=== PATIENT | female | born 1985 | race Caucasian/White ===

== ENCOUNTER 2016-10-17 10:03 | Emergency (ER) | payer BC ==
[2016-10-17 10:46] LABS: Hemoglobin 12.8 gm/dL (12.5-16.0); Mean Cell Volume 99.7 fl (78-100); Mean Corpuscular Hemoglobin 34.5 pg (27-31); Mean Corpuscular Hgb Conc 34.6 g/dl (32-36); Mean Platelet Volume 9.4 fl (6.0-9.5); Neutrophil # 4.6 K/mm3 (1.3-6.0); Neutrophil % 70.3 % (42-75.0); Platelet Count 222 K/mm3 (150-450); Red Blood Count 3.71 M/mm3 (4.2-5.4); Red Cell Distribution Width 11.6 % (11.5-14.0); White Blood Count 6.6 K/mm3 (4.0-10.5)
[2016-10-17 10:48] LABS: Urine Bilirubin Negative (NEGATIVE); Urine Blood Negative /ul (NEGATIVE); Urine Ketone Negative (NEGATIVE); Urine Nitrite Negative (NEGATIVE); Urine Protein 15 mg/dL (NEGATIVE); Urine Urobilinogen Normal (NORMAL)
[2016-10-17] MEDS ORDERED: IBUPROFEN 600 MG TABLET PO ONE (10:51)
[2016-10-17] MEDS ORDERED: IBUPROFEN 600 MG TABLET ONE (10:56)
--- NOTE | 2016-10-17 10:58 | ERNOTE ---
Abdominal HPI - General Chief Complaint: Abdominal Pain Time Seen by Provider: 10/17/16 10:44 Source: patient Exam Limitations: no limitations - Immun/Allergies/Home Medications Immunizatons: IMMUNIZATION HX Immunizations Up to Date Yes History of Influenza Vaccine Yes Hx Pneumococcal Vaccination No Allergies/Adverse Reactions: Allergies No Known Allergies Allergy (Verified 10/17/16 10:30) Home Medications: HOME MEDICATIONS NK [No Home Medication] 10/17/16 [Last Taken Unknown] - History of Present Illness Narrative: Patient has had right flank pain for about 24 hours. the pain is worse with certain movements and being upright vs laying down. She has not been taking any pain meds, denies any urinary symptoms. She had a formed BM yesterday Date (Duration): 10/16/16 Timing: constant Quality: moderate, sharpness Modifying Factors - (Improves): Present: rest Modifying Factors - (Worsens): Present: sitting up, movement Associated Symptoms: Absent: headache, chest pain, diarrhea-gross blood, fever/ chills, nausea, loss of appetite Review of Systems - Review of Systems Constitutional: Present: recent illness - flue like symptoms a week ago, resolved after two days EYE: Absent: tearing ENT: Absent: nose congestion, sore throat Respiratory: Absent: shortness of breath, cough Cardiology: Absent: chest pain, palpitations Gastrointestinal/Abdominal: Present: See HPI, abdominal pain. Absent: nausea, vomiting, diarrhea Genitourinary: Present: no symptoms reported, other - no vaginal sympotms. Absent: frequency, dysuria Skin: Absent: rash Neurological: Absent: headache - Patient's Past Medical History Patient History - Medical: Anxiety, UTI'S, Other Patient History - Cardiac/Respiratory: No pertinent hx Patient History - Cancer: No Hx of Cancer Patient History - Surgical Procedures: T & A Patient History - Other: None - Social History Living Situations: home Smoking Status: Never smoker Alcohol Use: occasionally Drug Use: none - Immunizations Immunizations Up to Date: Yes Physical Exam - Physical Exam General Appearance: Present: wd/wn, alert, no apparent distress Respiratory: Present: no respiratory distress, normal breath sounds, no accessory muscle use, chest nontender, lungs clear Cardiovascular/Chest: Present: regular rate, rhythm, no murmur Gastrointestinal/Abdominal: Present: normal bowel sounds, nondistended, soft, tenderness - mild diffuse Back Exam: Present: normal inspection, no vertebral tenderness, muscle spasm, other - tenderness on palpation of right flank muscles and muscles right below lateral ribs Neurological Exam: Present: alert, oriented, normal mood/affect, no motor/ sensory deficits DTR: N=norm/NB=norm/brisk/A=abs/DD=dull/dimin/HC=hyperactive: Ankle (L): Dull/ Diminished Skin Exam: Present: normal color, warm/dry ED Progress - Results and Orders Patient's Lab Results:: I have reviewed the patient's lab results. - Vital Signs Patient's Vital Signs:: I have reviewed the patient's vital signs. Vital Signs: Vital Signs 10/17/16 10:25 Temperature 36.5 C Pulse Rate 96 Respiratory 14 Rate Blood Pressure 134/89 O2 Sat by Pulse 100 Oximetry - Progress/Reassessment Chief Complaint: Abdominal Pain Progress Note-Subjective: 10/17/16 11:35 discussed test results, patient slightly better after ibuprofen Departure - Departure Clinical Impression: Musculoskeletal pain Disposition: Home self-care Condition: Good Instructions: Musculoskeletal Pain, Form - Excuse from Work, School, or Physical Activity Additional Instructions: take over the counter ibuprofen (200mg) three every six hours as needed for pain consider seeing your chiropractor Referrals: Jesse Ruelas DO [Staff Physician] -
[2016-10-17 11:02] LABS: Urine Appearance Slightly Cloudy; Urine Bacteria TRACE; Urine Color Yellow; Urine RBC None Seen /hpf (0-5); Urine WBC 0-5 /hpf (0-5)
[2016-10-17 11:04] LABS: Albumin * 3.8 gm/dl (3.4-5.0); Anion Gap 11.4 mmol/L (6.8-13.8); BUN/Creatinine Ratio 14.7 (9.0-21.6); Bilirubin, Total 0.7 mg/dL (0.0-1.1); Ca. Corrected For Albumin 8.8 mg/dL (8.4-10.2); Carbon Dioxide 29.7 mmol/L (24-32.6); Potassium 4.1 mmol/L (3.4-4.6); Total Protein 7.4 gm/dL (6.2-8.2)
[2016-10-17 11:39] VITALS: BP 128/85
== END 2016-10-17 11:48 | disposition home or self-care (01) ==
LOC: ER 10:03
DX: R10.9 Unspecified abdominal pain (principal)

== ENCOUNTER 2019-12-16 06:29 | Inpatient (IN) ==
[2019-12-16] MEDS ORDERED: ONDANSETRON HCL/PF 2 MG/ML VIAL IV ONE ×2 (06:45→09:29)
[2019-12-16] MEDS ORDERED: BUTORPHANOL TARTRATE 2 MG/ML VIAL IV ONE (06:46)
--- NOTE | 2019-12-16 06:52 | ERNOTE ---
<Donald Jacobo - Last Filed: 12/16/19 07:53> Abdominal HPI - General Chief Complaint: Abdominal Pain Time Seen by Provider: 12/16/19 06:40 Source: patient Exam Limitations: no limitations - Immun/Allergies/Home Medications Immunizatons: IMMUNIZATION HX Immunizations Up to Date Yes History of Influenza Vaccine No Hx Pneumococcal Vaccination No Allergies/Adverse Reactions: Allergies No Known Allergies Allergy (Verified 12/14/18 09:21) Home Medications: HOME MEDICATIONS Levonorgestrel [Mirena] 1 ea IY ONCE 12/16/19 [Last Taken Unknown] - History of Present Illness Narrative: Patient states she awoke around 5 AM with stabbing abdominal pain through to her back. It is worsened since she woke up. States the pain makes her nauseous but she has not been able to throw up. She took an unknown "stomach pill" of her daughters to try to relieve this pain which did not change it Timing: getting worse Quality: severe, stabbing Activities at Onset: sleep Modifying Factors - (Worsens): Present: movement Associated Symptoms: Present: back pain, nausea Prior Abdominal Problems: Present: other - pancreatitis Review of Systems - Review of Systems Constitutional: Absent: recent illness, fever Respiratory: Absent: shortness of breath Cardiology: Absent: chest pain Gastrointestinal/Abdominal: Present: See HPI, nausea, abdominal pain. Absent: vomiting Musculoskeletal: Present: back pain Skin: Absent: rash Neurological: Present: dizziness/light-headedness, tingling - of hands. Absent: headache Endocrine: Absent: excessive sweating Hematologic/Lymphatic: Absent: easy bruising, easy bleeding Medical History (Last Reviewed 12/16/19 @ 06:49 by Donald Jacobo DO) No pertinent past medical history Surgical History: Surgical History (Last Reviewed 12/16/19 @ 06:49 by Donald Jacobo DO) History of myringotomy History of tonsillectomy and adenoidectomy Social History: (Last Reviewed 12/16/19 @ 06:49 by Donald Jacobo DO) Tobacco: Smoking Status: Never smoker Physical Exam - Physical Exam General Appearance: Present: wd/wn, alert, moderate distress Head Exam: Present: normal inspection, no evidence of injury Neck: Present: normal inspection, nontender, supple Respiratory: Present: no respiratory distress, normal breath sounds, lungs clear Cardiovascular/Chest: Present: regular rate, rhythm, no murmur Peripheral Pulses: N=norm/S=strong/W=weak/B=bound/A=absent: Dorsalis-pedis (R): Normal, Dorsalis-pedis (L): Normal Gastrointestinal/Abdominal: Present: tenderness - epigastric-RUQ (more) and LUQ (less) Back Exam: Present: normal inspection, no CVA tenderness, no vertebral tenderness Extremity Exam: Present: normal inspection, normal range of motion, no edema Neurological Exam: Present: alert, oriented, normal mood/affect Skin Exam: Present: normal color, warm/dry Lymphatic Exam: Present: no adenopathy Progress - Results and Orders Patient's Lab Results:: I have reviewed the patient's lab results. - Vital Signs Patient's Vital Signs:: I have reviewed the patient's vital signs. Vital Signs: Vital Signs 12/16/19 06:35 Temperature 36.0 C Pulse Rate 77 Respiratory Rate 20 Blood Pressure 121/78 O2 Sat by Pulse Oximetry 100 - X-Ray X-Ray #1 X-Ray: abdomen Interpretation: Reviewed by me X-ray Comments: FINDINGS: No free air. Nonobstructed nonspecific bowel gas pattern. No abnormal calcification. IUD projects within the pelvis. IMPRESSION: 1. No acute plain film pathology detected Electronically signed by Salvador Foster M.D - Progress/Reassessment Chief Complaint: Abdominal Pain Progress:: Improved Progress Note-Subjective: 12/16/19 07:15 Patient returned from x-ray diaphoretic. Patient states pain is improved and nausea improved but still present. - Transfer of Care Physician Sign Out: Donald Jacobo Receiving Physician: Gallo Ingram Pending Results: CT/MRI results Expected Disposition: Admit Departure Clinical Impression: Pancreatitis - Departure Disposition: Still a patient Condition: Fair <Gallo Ingram - Last Filed: 12/16/19 11:43> Abdominal HPI - Immun/Allergies/Home Medications Immunizatons: IMMUNIZATION HX Immunizations Up to Date Yes History of Influenza Vaccine No Hx Pneumococcal Vaccination No Medical History (Last Reviewed 12/16/19 @ 06:49 by Donald Jacobo DO) No pertinent past medical history Surgical History: Surgical History (Last Reviewed 12/16/19 @ 06:49 by Donald Jacobo DO) History of myringotomy History of tonsillectomy and adenoidectomy Social History: (Last Reviewed 12/16/19 @ 06:49 by Donald Jacobo DO) Tobacco: Smoking Status: Never smoker Progress - Results and Orders Patient's Lab Results:: I have reviewed the patient's lab results. - Vital Signs Patient's Vital Signs:: I have reviewed the patient's vital signs. Vital Signs: Vital Signs 12/16/19 06:35 12/16/19 07:12 12/16/19 07:57 Temperature 36.0 C Pulse Rate 77 78 73 Respiratory Rate 20 16 14 Blood Pressure 121/78 129/90 H 137/94 H O2 Sat by Pulse Oximetry 100 99 95 12/16/19 08:20 Temperature Pulse Rate 87 Respiratory Rate 14 Blood Pressure 117/67 O2 Sat by Pulse Oximetry 100 - CT/Ultrasound CT/Ultrasound Narrative: I reviewed official radiology report for CT ABD/Pelvis and officail x-ray report ordered earlier of the abdomen - Progress/Reassessment Progress Note-Subjective: 12/16/19 11:12 Patient checked out to me by Dr Jacobo at am shift change. Patient given repeated doses of narcotic and anti-emetic. Labs/x-ray and CT reviewed. She will need hospitalization for symptom control. Patient is agreeable. D/W Dr Almanza who will admit. Please see Dr Jacobo's note for full H&P.
[2019-12-16 07:01] LABS: Hemoglobin 13.8 gm/dL (12.5-16.0); Mean Cell Volume 106.6 fl (78-100); Mean Corpuscular Hemoglobin 37.7 pg (27-31); Mean Corpuscular Hgb Conc 35.4 g/dl (32-36); Mean Platelet Volume 9.4 fl (8-12.5); Neutrophil # 3.1 K/mm3 (1.3-6.0); Neutrophil % 53.5 % (42-75.0); Platelet Count 209 K/mm3 (150-450); Red Blood Count 3.66 M/mm3 (4.2-5.4); Red Cell Distribution Width 11.9 % (11.5-14.0); White Blood Count 5.8 K/mm3 (4.0-10.5)
[2019-12-16 07:49] LABS: Albumin * 3.9 gm/dl (3.4-5.0); Anion Gap 20.8 mmol/L (6.8-13.8); BUN/Creatinine Ratio 13.8 (9.0-21.6); Bilirubin, Total 0.7 mg/dL (0.0-1.1); Ca. Corrected For Albumin 8.3 mg/dL (8.4-10.2); Calcium * 8.5 mg/dL (7.9-10.9); Carbon Dioxide 20.3 mmol/L (24-32.6); Potassium 3.1 mmol/L (3.4-4.6)
[2019-12-16] MEDS ORDERED: diphenhydrAMINE HCL 50 MG/ML VIAL IV ONE (08:04)
[2019-12-16] MEDS ORDERED: PROCHLORPERAZINE EDISYLATE 5 MG/ML VIAL IV ONE (08:04)
[2019-12-16] MEDS ORDERED: HYDROmorphone HCL 1 MG/ML DISP.SYRIN IV ONE ×3 (08:04→11:33)
[2019-12-16] MEDS ORDERED: NORMAL SALINE 1,000 ML IV ONE (08:05)
[2019-12-16] MEDS ORDERED: DIATRIZOATE MEGLUMINE, SODIUM 30 ML BTL PO ONE (08:12)
[2019-12-16] MEDS ORDERED: MULTIVIT INFUSN,ADULT 4,VIT K 10 ML, THIAMINE HCL 100 MG in NORMAL SALINE 1,000 ML IV ONE (11:07)
[2019-12-16] MEDS: HYDROmorphone HCL 1 MG/ML DISP.SYRIN IV PRN ×3 (13:32→22:14)
--- NOTE | 2019-12-16 16:12 | HP ---
Chief Complaint - Chief Complaint Date of Service: 12/16/19 Time of Service: 15:58 Chief Complaint: abdominal pain History of Present Illness: Chandrika montes is a 34-year-old white female with past medical history of hypertension (for which she takes metoprolol succinate 25 mg p.o. daily but has not been doing that for some time), who was admitted on 12/16/2019 because of abdominal pain. About 5:00 in the morning she woke up with abdominal pain, 7/10, stabbing in character, associated with nausea. She initially had dry heaves but later on started vomiting bilious material. She had an episode of acute pancreatitis 10 years ago. She was never told she had a gallbladder stone. She does give a history of alcohol intake every day 3-5 drinks. She denies fever or chills, diarrhea or constipation, denies hematochezia or hematemesis. Her white blood cell count was normal, she does have macrocytosis, her lipase was 8659, amylase was 409, AST ALT was 213/191, calcium was 8.5, potassium was 3.1, BUN creatinine was 9 and 0.6. Her abdominal x-ray showed no acute intra-abdominal findings. Her CT scan showed an acute uncomplicated pancreatitis, diffuse nonspecific colitis correlate clinically and recommend colonoscopy when patient is better, diffuse fatty infiltration of the liver. She was given IV fluids, and IV pain medication and admitted for further evaluation and treatment. Medical History (Last Reviewed 12/16/19 @ 12:24 by Tere Ac RN) Pancreatitis Surgical History: Surgical History (Last Reviewed 12/16/19 @ 12:24 by Tere Ac RN) History of myringotomy History of tonsillectomy and adenoidectomy Social History: (Last Updated 12/16/19 @ 08:32 by Sophia De La Paz RN) Tobacco: Smoking Status: Never smoker Alcohol: alcohol intake: current Alcohol type: hard liquor alcohol intake frequency: 3 or more drinks per day Substance Use: substance use type: does not use Review Of Systems (GEN) - Review of Systems Generalized/Overall Review: Absent: Weakness, Chills, Fever EENTM: Absent: Blurred Vision Respiratory: Absent: Cough, Shortness of Breath, Orthopnea Cardiac: Absent: Chest Pain, Edema, Palpitations Abdominal: Present: Nausea, Vomiting, Abdominal Pain. Absent: Hematemesis, Diarrhea, Melena Genitourinary: Absent: Itching, Urgency Musculoskeletal: Absent: Joint Pain, Back Pain Neurological: Absent: Headache Skin: Absent: Lesions, Rash Misc: All systems neg except as marked Immunizations: IMMUNIZATION HX Immunizations Up to Date Yes History of Influenza Vaccine No Hx Pneumococcal Vaccination No Allergies/Adverse Reactions: Allergies Allergy/AdvReac Type Severity Reaction Status Date / Time No Known Allergies Allergy Verified 12/16/19 12:25 Home Medications: HOME MEDICATIONS Levonorgestrel [Mirena] 1 ea IY ONCE 12/16/19 [Last Taken Unknown] Exam - Exam Vital Signs: Vital Signs - Last Taken Temp 36.7 C 12/16/19 14:11 Pulse 91 12/16/19 15:28 Resp 20 12/16/19 14:11 BP 145/88 H 12/16/19 14:11 Pulse Ox 97 12/16/19 14:11 Constitutional: Present: Alert, Oriented x3, Cooperative ENT Exam: Present: hearing grossly normal Eye Exam: bilateral eye: normal inspection, PERRL, EOMI Neck: Present: supple. Absent: lymphadenopathy (R), lymphadenopathy (L) Back Exam: Present: no CVA tenderness Respiratory: Present: normal breath sounds, No rales, No wheezing Cardiovascular/Chest: Present: regular rate, rhythm, no JVD, no murmur Abdomen: Present: soft, nondistended, tender, hypoactive. Absent: rebound tenderness Extremity: Present: no pedal edema, no calf tenderness Diagnostic Studies: Abnormal Lab Results 12/16/19 12/16/19 12/16/19 Range/Units 06:55 06:55 06:55 RBC 3.66 L (4.2-5.4) M/mm3 MCV 106.6 H (78-100) fl MCH 37.7 H (27-31) pg Immature Gran % (Auto) 0.50 H (0.001-0.429) % Monocytes % 10.1 H (0.0-9) % Potassium 3.1 L (3.4-4.6) mmol/L Carbon Dioxide 20.3 L (24-32.6) mmol/L Anion Gap 20.8 H (6.8-13.8) mmol/L Random Glucose 146 H (70-110) mg/dL Calcium Adj for Albumin 8.3 L (8.4-10.2) mg/dL AST 213 H (0-48) U/L ALT 191 H (19-67) U/L Amylase 409 H (25-115) U/L Lipase 8659 H (73-393) U/L Ethyl Alcohol 128.0 H (0.0-10.0) mg/dL Laboratory Results WBC 5.8 K/mm3 (4.0-10.5) 12/16/19 06:55 RBC 3.66 M/mm3 (4.2-5.4) L 12/16/19 06:55 Hgb 13.8 gm/dL (12.5-16.0) 12/16/19 06:55 Hct 39.0 % (37.0-47.0) 12/16/19 06:55 MCV 106.6 fl (78-100) H 12/16/19 06:55 MCH 37.7 pg (27-31) H 12/16/19 06:55 MCHC 35.4 g/dl (32-36) 12/16/19 06:55 RDW 11.9 % (11.5-14.0) 12/16/19 06:55 Plt Count 209 K/mm3 (150-450) 12/16/19 06:55 MPV 9.4 fl (8-12.5) 12/16/19 06:55 Immature Gran % (Auto) 0.50 % (0.001-0.429) H 12/16/19 06:55 Immature Gran # (Auto) 0.03 K/mm3 (0.000-0.0310) 12/16/19 06:55 Neutrophils % 53.5 % (42-75.0) 12/16/19 06:55 Lymphocytes % 34.2 % (20-51) 12/16/19 06:55 Monocytes % 10.1 % (0.0-9) H 12/16/19 06:55 Eosinophils % 1.4 % (0.0-3.0) 12/16/19 06:55 Basophils % 0.3 % (0.0-1.0) 12/16/19 06:55 Nucleated RBC % 0.0 k/mm3 (0-1) 12/16/19 06:55 Neutrophils # 3.1 K/mm3 (1.3-6.0) 12/16/19 06:55 Lymphocytes # 1.99 k/mm3 (1.5-3.5) 12/16/19 06:55 Monocytes # 0.6 k/mm3 (0.0-1.0) 12/16/19 06:55 Eosinophils # 0.1 k/mm3 (0.0-0.7) 12/16/19 06:55 Absolute Basophils 0.0 k/mm3 (0.0-0.1) 12/16/19 06:55 Sodium 140 mmol/L (132-142) 12/16/19 06:55 Plasma Sodium 141 mmol/L (130-142) 12/16/19 06:55 Potassium 3.1 mmol/L (3.4-4.6) L 12/16/19 06:55 Chloride 102 mmol/L (97-106) 12/16/19 06:55 Carbon Dioxide 20.3 mmol/L (24-32.6) L 12/16/19 06:55 Anion Gap 20.8 mmol/L (6.8-13.8) H 12/16/19 06:55 BUN 9 mg/dL (3-23) 12/16/19 06:55 Creatinine 0.65 mg/dL (0.4-1.4) 12/16/19 06:55 Est GFR (Non-Af Amer) 110 mL/min (60-130) 12/16/19 06:55 BUN/Creatinine Ratio 13.8 (9.0-21.6) 12/16/19 06:55 Random Glucose 146 mg/dL (70-110) H 12/16/19 06:55 Calcium 8.5 mg/dL (7.9-10.9) 12/16/19 06:55 Calcium Adj for Albumin 8.3 mg/dL (8.4-10.2) L 12/16/19 06:55 Magnesium 1.6 mg/dL (1.2-2.8) 12/16/19 Unknown Total Bilirubin 0.7 mg/dL (0.0-1.1) 12/16/19 06:55 AST 213 U/L (0-48) H 12/16/19 06:55 ALT 191 U/L (19-67) H 12/16/19 06:55 Alkaline Phosphatase 57 U/L (50-170) 12/16/19 06:55 Lactate Dehydrogenase 227 U/L (81-234) 12/16/19 06:55 Total Protein 7.0 gm/dL (6.2-8.2) 12/16/19 06:55 Albumin 3.9 gm/dl (3.4-5.0) 12/16/19 06:55 Amylase 409 U/L (25-115) H 12/16/19 06:55 Lipase 8659 U/L (73-393) H 12/16/19 06:55 Urine HCG, Qual Negative (NEGATIVE) 12/16/19 08:02 Ethyl Alcohol 128.0 mg/dL (0.0-10.0) H 12/16/19 06:55 Assessment/Plan - Narrative Narrative: Chandrika Arevalo was admitted for abdominal pain, nausea and vomiting, with elevated lipase, elevated AST/ALT, elevated ethyl alcohol level with acute uncomplicated pancreatitis on CT scan likely due to alcohol intake. Her CT scan does also say diffuse colitis but clinically she is presenting more with acute pancreatitis. We will add celiac and inflammatory bowel disease panel to her blood work. We will also add vitamin B12 and folate to her blood work but her macrocytosis likely could be due to her alcohol intake. Consider colonoscopy as an outpatient when she is much better especially if screening tests come back positive. She will stay on n.p.o., IV fluids, IV pain medications for pain control. We will put her on alcohol withdrawal protocol using Ativan. - Assessment/Plan (1) Pancreatitis Problem: Acute Qualifiers: Chronicity: acute Pancreatitis type: alcohol induced Acute pancreatitis complication: unspecified Qualified Code(s): K85.20 - Alcohol induced acute pancreatitis without necrosis or infection (2) Hypertension Problem: Chronic Qualifiers: Hypertension type: essential hypertension Qualified Code(s): I10 - Essential (primary) hypertension (3) Macrocytosis without anemia Problem: Acute
[2019-12-16] MEDS: LORazepam 2 MG/ML DISP.SYRIN IV PRN ×2 (19:56→23:01)
[2019-12-16] MEDS: PANTOPRAZOLE SODIUM 40 MG in NORMAL SALINE 100 ML IV SCH (19:59)
[2019-12-16 20:48] LABS: Folate 12.1 ng/mL (8.6-58.9)
[2019-12-17] MEDS: HYDROmorphone HCL 1 MG/ML DISP.SYRIN IV PRN ×5 (02:25→22:13)
[2019-12-17] MEDS: LORazepam 2 MG/ML DISP.SYRIN IV PRN ×2 (02:48→07:17)
[2019-12-17] MEDS: POTASSIUM CHLORIDE 10 MEQ in NORMAL SALINE 1,000 ML IV SCH ×2 (07:31→14:29)
[2019-12-17 08:42] LABS: Hemoglobin 14.7 gm/dL (12.5-16.0); Mean Cell Volume 108.8 fl (78-100); Mean Corpuscular Hemoglobin 38.1 pg (27-31); Neutrophil # 11.1 K/mm3 (1.3-6.0); Neutrophil % 90.5 % (42-75.0); Platelet Count 158 K/mm3 (150-450); Red Blood Count 3.86 M/mm3 (4.2-5.4); Red Cell Distribution Width 12.1 % (11.5-14.0); White Blood Count 12.3 K/mm3 (4.0-10.5)
[2019-12-17 08:56] LABS: Albumin * 3.3 gm/dl (3.4-5.0); Anion Gap 14.2 mmol/L (6.8-13.8); BUN/Creatinine Ratio 17.5 (9.0-21.6); Bilirubin, Total 1.5 mg/dL (0.0-1.1); Ca. Corrected For Albumin 7.6 mg/dL (8.4-10.2); Calcium * 7.4 mg/dL (7.9-10.9); Carbon Dioxide 26.4 mmol/L (24-32.6); Potassium 3.6 mmol/L (3.4-4.6); Total Protein 6.4 gm/dL (6.2-8.2)
--- NOTE | 2019-12-17 09:28 | PN ---
Subjective - Date and Time Seen Date: 12/17/19 Time: 09:24 Subjective Narrative: Patient is feeling better except for some dyspepsia. T-max was 37. White blood cell count is elevated today. Objective - Review of Systems Generalized/Overall Review: Denies: Weakness, Chills, Fever EENTM: Denies: Blurred Vision Respiratory: Denies: Shortness of Breath Cardiac: Denies: Chest Pain, Edema, Palpitations Abdominal: Reports: Nausea, Abdominal Pain. Denies: Vomiting, Hematemesis Genitourinary Symptoms: Denies: Urgency, Frequency Musculoskeletal Complaints: Denies: Joint Pain Neurological: Denies: Headache Skin: Denies: Lesions, Rash Misc: All systems neg except as marked - Vitals Vitals: Last Vital Signs Temp 37.0 C 12/17/19 06:36 Pulse 122 H 12/17/19 06:36 Resp 20 12/17/19 06:36 BP 126/92 H 12/17/19 06:36 Pulse Ox 96 12/17/19 06:36 - Abnormal Lab Findings Abnormal Lab Findings: Abnormal Lab Results 12/17/19 12/17/19 Range/Units 08:33 08:33 WBC 12.3 H D (4.0-10.5) K/mm3 RBC 3.86 L (4.2-5.4) M/mm3 MCV 108.8 H (78-100) fl MCH 38.1 H (27-31) pg Immature Gran # (Auto) 0.04 H (0.000-0.0310) K/mm3 Neutrophils % 90.5 H (42-75.0) % Lymphocytes % 4.1 L (20-51) % Neutrophils # 11.1 H (1.3-6.0) K/mm3 Lymphocytes # 0.50 L (1.5-3.5) k/mm3 Anion Gap 14.2 H (6.8-13.8) mmol/L Random Glucose 134 H (70-110) mg/dL Calcium 7.4 L (7.9-10.9) mg/dL Calcium Adj for Albumin 7.6 L (8.4-10.2) mg/dL Total Bilirubin 1.5 H (0.0-1.1) mg/dL AST 94 H (0-48) U/L ALT 113 H (19-67) U/L Alkaline Phosphatase 42 L (50-170) U/L Albumin 3.3 L (3.4-5.0) gm/dl Lipase 2562 H (73-393) U/L - Exam Constitutional: Present: Alert, Oriented x3, Cooperative ENT Exam: Present: hearing grossly normal Neck: Present: supple Respiratory: Present: decreased breath sounds, No rales, No wheezing Cardiovascular/Chest: Present: regular rate, rhythm, no JVD, tachycardia Abdomen: Present: Normal bowel sounds, soft, nondistended, tender. Absent: rebound tenderness Extremity: Present: no pedal edema, no calf tenderness Assessment/Plan Plan Narrative: Chandrika Arevalo is a 34-year-old white female admitted for abdominal pain, nausea, vomiting, with a diagnosis of acute uncomplicated pancreatitis. She has been having dyspepsia and we started her on IV Protonix. Her lipase is down from 8000+ to 2000+. We will try advancing her diet to clear liquids. We will give her IV Lopressor for her tachycardia and blood pressure. We will continue her on alcohol withdrawal protocol. We have increased her IV fluids to 150 mL/min. Her leukocytosis is llikely due inflammation form her pancreatitis but will do a UCS and CXR. - Problems/Diagnosis (1) Pancreatitis Problem: Acute Qualifiers: Chronicity: acute Pancreatitis type: alcohol induced Acute pancreatitis complication: unspecified Qualified Code(s): K85.20 - Alcohol induced acute pancreatitis without necrosis or infection (2) Leukocytosis Problem: Acute (3) Hypertension Problem: Chronic Qualifiers: Hypertension type: essential hypertension Qualified Code(s): I10 - Essential (primary) hypertension (4) Macrocytosis without anemia Problem: Acute
[2019-12-17 10:03] LABS: Urine Bilirubin 3 mg/dl (NEGATIVE); Urine Blood 50 /ul (NEGATIVE); Urine Ketone 50 mg/dL (NEGATIVE); Urine Protein 30 mg/dL (NEGATIVE); Urine Specific Gravity >=1.030 SP.GR. (1.005-1.010); Urine Urobilinogen Normal (NORMAL); Urine pH 6.5 pH (5.0-7.0)
[2019-12-17 10:27] LABS: Urine Appearance Clear (CLEAR); Urine Bacteria 3+; Urine Color Dark Yellow; Urine Nitrite Positive (NEGATIVE); Urine RBC TRACE /hpf (0-5); Urine WBC 0-5 /hpf (0-5)
[2019-12-17 10:28] LABS: Urine Mucus Moderate - 2+
[2019-12-17] MEDS: METOPROLOL TARTRATE 1 MG/ML AMPUL IV SCH ×2 (10:31→20:59)
[2019-12-17] MEDS ORDERED: ONDANSETRON HCL 4 MG TABLET PO PRN (12:11)
[2019-12-17] MEDS: ONDANSETRON HCL/PF 2 MG/ML VIAL IV PRN ×2 (12:40→19:03)
[2019-12-17] MEDS: MULTIVIT INFUSN,ADULT 4,VIT K 10 ML, THIAMINE HCL 100 MG in NORMAL SALINE 1,000 ML IV SCH (14:13)
[2019-12-17] MEDS ORDERED: CALCIUM CARBONATE 500 MG TAB.CHEW PO PRN (14:57)
[2019-12-17] MEDS: ENOXAPARIN SODIUM 40 MG/0.4 ML SYRG SC SCH (17:28)
[2019-12-17] MEDS ORDERED: AZITHROMYCIN 500 MG in DEXTROSE 5 % IN WATER 250 ML IV ONE ×2 (17:30)
[2019-12-17] MEDS: PANTOPRAZOLE SODIUM 40 MG in NORMAL SALINE 100 ML IV SCH (21:04)
[2019-12-18] MEDS: HYDROmorphone HCL 1 MG/ML DISP.SYRIN IV PRN ×6 (02:28→23:52)
[2019-12-18] MEDS: POTASSIUM CHLORIDE 10 MEQ in NORMAL SALINE 1,000 ML IV SCH ×2 (05:57→13:15)
[2019-12-18] MEDS: ONDANSETRON HCL/PF 2 MG/ML VIAL IV PRN ×2 (06:49→15:30)
[2019-12-18 07:21] LABS: Hematocrit 36.1 % (37.0-47.0); Hemoglobin 12.5 gm/dL (12.5-16.0); Mean Cell Volume 109.4 fl (78-100); Mean Corpuscular Hemoglobin 37.9 pg (27-31); Mean Corpuscular Hgb Conc 34.6 g/dl (32-36); Mean Platelet Volume 10.6 fl (8-12.5); Neutrophil # 10.5 K/mm3 (1.3-6.0); Neutrophil % 88.4 % (42-75.0); Platelet Count 137 K/mm3 (150-450); Red Cell Distribution Width 11.9 % (11.5-14.0); White Blood Count 11.8 K/mm3 (4.0-10.5)
[2019-12-18 07:34] LABS: Albumin * 2.6 gm/dl (3.4-5.0); Anion Gap 12.6 mmol/L (6.8-13.8); BUN/Creatinine Ratio 11.5 (9.0-21.6); Bilirubin, Total 1.2 mg/dL (0.0-1.1); Calcium * 6.2 mg/dL (7.9-10.9); Carbon Dioxide 21.9 mmol/L (24-32.6); Potassium 3.5 mmol/L (3.4-4.6); Total Protein 5.4 gm/dL (6.2-8.2)
--- NOTE | 2019-12-18 08:44 | PN ---
Subjective - Date and Time Seen Date: 12/18/19 Time: 08:32 Subjective Narrative: Patient says she is feeling better this morning. Tolerating increase fuid this morning comapard to testerday. Afebrile. UA- UTI vs contamination. CXR - LLL pneumonia. Objective - Review of Systems Generalized/Overall Review: Denies: Weakness, Chills, Fever EENTM: Denies: Blurred Vision Respiratory: Denies: Cough, Shortness of Breath Cardiac: Denies: Chest Pain, Edema, Palpitations Abdominal: Reports: Nausea, Abdominal Pain. Denies: Vomiting, Hematemesis, Melena, Bright blood from rectum Genitourinary Symptoms: Reports: Dysuria. Denies: Urgency, Frequency Musculoskeletal Complaints: Denies: Joint Pain, Back Pain Neurological: Denies: Headache Skin: Denies: Lesions, Rash - Vitals Vitals: Last Vital Signs Temp 37 C 12/18/19 06:20 Pulse 112 H 12/18/19 06:20 Resp 18 12/18/19 06:20 BP 132/88 12/18/19 06:20 Pulse Ox 95 12/18/19 06:20 - Abnormal Lab Findings Abnormal Lab Findings: Abnormal Lab Results 12/17/19 12/17/19 12/17/19 Range/Units 08:33 08:33 09:55 WBC 12.3 H D (4.0-10.5) K/mm3 RBC 3.86 L (4.2-5.4) M/mm3 Hct (37.0-47.0) % MCV 108.8 H (78-100) fl MCH 38.1 H (27-31) pg Plt Count (150-450) K/mm3 Immature Gran # (Auto) 0.04 H (0.000-0.0310) K/mm3 Neutrophils % 90.5 H (42-75.0) % Lymphocytes % 4.1 L (20-51) % Neutrophils # 11.1 H (1.3-6.0) K/mm3 Lymphocytes # 0.50 L (1.5-3.5) k/mm3 Sodium (132-142) mmol/L Carbon Dioxide (24-32.6) mmol/L Anion Gap 14.2 H (6.8-13.8) mmol/L Est GFR (Non-Af Amer) (60-130) mL/min Random Glucose 134 H (70-110) mg/dL Calcium 7.4 L (7.9-10.9) mg/dL Calcium Adj for Albumin 7.6 L (8.4-10.2) mg/dL Total Bilirubin 1.5 H (0.0-1.1) mg/dL AST 94 H (0-48) U/L ALT 113 H (19-67) U/L Alkaline Phosphatase 42 L (50-170) U/L Total Protein (6.2-8.2) gm/dL Albumin 3.3 L (3.4-5.0) gm/dl Amylase (25-115) U/L Lipase 2562 H (73-393) U/L Urine Protein 30 H (NEGATIVE) mg/dL Urine Blood 50 H (NEGATIVE) /ul Urine Nitrate Positive H (NEGATIVE) Urine Bilirubin 3 H (NEGATIVE) mg/dl Prot Sulfosalicylic Acd 2+ H (0) mg/dL Ur Epithelial Cells 5-10 H (0-5) /hpf Urine Bacteria 3+ H (NONE) Urine Mucus Moderate - 2+ H (NONE) 12/18/19 12/18/19 Range/Units 06:50 06:50 WBC 11.8 H (4.0-10.5) K/mm3 RBC 3.30 L (4.2-5.4) M/mm3 Hct 36.1 L (37.0-47.0) % MCV 109.4 H (78-100) fl MCH 37.9 H (27-31) pg Plt Count 137 L (150-450) K/mm3 Immature Gran # (Auto) 0.04 H (0.000-0.0310) K/mm3 Neutrophils % 88.4 H (42-75.0) % Lymphocytes % 6.2 L (20-51) % Neutrophils # 10.5 H (1.3-6.0) K/mm3 Lymphocytes # 0.73 L (1.5-3.5) k/mm3 Sodium 131 L (132-142) mmol/L Carbon Dioxide 21.9 L (24-32.6) mmol/L Anion Gap (6.8-13.8) mmol/L Est GFR (Non-Af Amer) 142 H (60-130) mL/min Random Glucose (70-110) mg/dL Calcium 6.2 L (7.9-10.9) mg/dL Calcium Adj for Albumin 7.0 L (8.4-10.2) mg/dL Total Bilirubin 1.2 H (0.0-1.1) mg/dL AST 55 H (0-48) U/L ALT (19-67) U/L Alkaline Phosphatase 41 L (50-170) U/L Total Protein 5.4 L (6.2-8.2) gm/dL Albumin 2.6 L (3.4-5.0) gm/dl Amylase 248 H (25-115) U/L Lipase 719 H (73-393) U/L Urine Protein (NEGATIVE) mg/dL Urine Blood (NEGATIVE) /ul Urine Nitrate (NEGATIVE) Urine Bilirubin (NEGATIVE) mg/dl Prot Sulfosalicylic Acd (0) mg/dL Ur Epithelial Cells (0-5) /hpf Urine Bacteria (NONE) Urine Mucus (NONE) - Exam Constitutional: Present: Alert, Oriented x3, Cooperative ENT Exam: Present: hearing grossly normal Neck: Present: supple. Absent: lymphadenopathy (R), lymphadenopathy (L) Respiratory: Present: decreased breath sounds, No rales, No wheezing Cardiovascular/Chest: Present: regular rate, rhythm, no JVD, tachycardia Abdomen: Present: Normal bowel sounds, soft, nondistended, tender. Absent: rebound tenderness Extremity: Present: no pedal edema, no calf tenderness Assessment/Plan Plan Narrative: Chandrika is on her fourth hospital day after being admitted for acute uncomplicated pancreatitis. She developed leukocytosis yesterday. Unlikely from complications from her acute pancreatitis. Her urinalysis showed possible UTI versus contaminated specimen, chest x-ray showed left lower lobe pneumonia. She was started on IV Rocephin and azithromycin and cultures are pending. Her urine culture and sensitivity preliminarily shows no growth. She is feeling better today. Her white blood cell count is trending down. She is starting to have improved urine output. She is able to increase her oral fluid this morning and is not as nauseous as yesterday. We will advance her diet to full liquids and then to low residue, low-fat, soft diet as tolerated. Her liver function test as well as amylase, lipase show levels that are trending down as well. - Problems/Diagnosis (1) Pancreatitis Problem: Acute Qualifiers: Chronicity: acute Pancreatitis type: alcohol induced Acute pancreatitis complication: unspecified Qualified Code(s): K85.20 - Alcohol induced acute pancreatitis without necrosis or infection (2) Leukocytosis Problem: Acute (3) Hypertension Problem: Chronic Qualifiers: Hypertension type: essential hypertension Qualified Code(s): I10 - Essential (primary) hypertension (4) Macrocytosis without anemia Problem: Acute Narrative: her B12 is in the low normal.
[2019-12-18] MEDS: METOPROLOL TARTRATE 1 MG/ML AMPUL IV SCH (10:23)
[2019-12-18] MEDS: CALCIUM CARBONATE 500 MG TAB.CHEW PO SCH ×3 (13:17→20:12)
[2019-12-18] MEDS: MULTIVIT INFUSN,ADULT 4,VIT K 10 ML, THIAMINE HCL 100 MG in NORMAL SALINE 1,000 ML IV SCH (15:29)
[2019-12-18] MEDS: ENOXAPARIN SODIUM 40 MG/0.4 ML SYRG SC SCH (18:09)
[2019-12-18] MEDS ORDERED: AZITHROMYCIN 250 MG TABLET PO SCH (19:00)
[2019-12-18] MEDS: PANTOPRAZOLE SODIUM 40 MG in NORMAL SALINE 100 ML IV SCH (19:50)
[2019-12-18] MEDS: LORazepam 2 MG/ML DISP.SYRIN IV PRN (21:03)
[2019-12-19] MEDS: HYDROmorphone HCL 1 MG/ML DISP.SYRIN IV PRN ×2 (03:52→08:33)
[2019-12-19 07:08] LABS: Hematocrit 34.1 % (37.0-47.0); Hemoglobin 11.8 gm/dL (12.5-16.0); Mean Cell Volume 109.6 fl (78-100); Mean Corpuscular Hemoglobin 37.9 pg (27-31); Mean Corpuscular Hgb Conc 34.6 g/dl (32-36); Mean Platelet Volume 10.3 fl (8-12.5); Platelet Count 139 K/mm3 (150-450); Red Blood Count 3.11 M/mm3 (4.2-5.4); Red Cell Distribution Width 11.9 % (11.5-14.0); White Blood Count 10.7 K/mm3 (4.0-10.5)
[2019-12-19 07:18] LABS: Albumin * 2.6 gm/dl (3.4-5.0); Anion Gap 12.3 mmol/L (6.8-13.8); BUN/Creatinine Ratio 8.2 (9.0-21.6); Ca. Corrected For Albumin 7.3 mg/dL (8.4-10.2); Calcium * 6.5 mg/dL (7.9-10.9); Carbon Dioxide 23.7 mmol/L (24-32.6); Total Cells Counted 100; Total Protein 5.6 gm/dL (6.2-8.2)
[2019-12-19 07:48] LABS: Lymphocyte 6 % (20-51); Monocyte 7 % (0-9); Neutrophil 87 % (42-75); Neutrophil # 9.3 K/mm3 (1.3-6.0)
[2019-12-19 07:50] LABS: Platelet Estimate Normal (NORMAL); RBC Morphology Normal (NORMAL)
[2019-12-19] MEDS: CALCIUM CARBONATE 500 MG TAB.CHEW PO SCH (08:27)
[2019-12-19] MEDS ORDERED: METOPROLOL SUCCINATE 25 MG TABLET.SA PO SCH (09:00)
--- NOTE | 2019-12-19 11:58 | DS ---
(1) Pancreatitis Problem: Resolved Qualifiers: Chronicity: acute Pancreatitis type: alcohol induced Acute pancreatitis complication: unspecified Qualified Code(s): K85.20 - Alcohol induced acute pancreatitis without necrosis or infection (2) Leukocytosis Problem: Acute (3) Hypertension Problem: Chronic Qualifiers: Hypertension type: essential hypertension Qualified Code(s): I10 - Essential (primary) hypertension (4) Macrocytosis without anemia Problem: Chronic Date of Discharge:: 12/19/19 Hospital Course: Chandrika montes is a 34-year-old white female with past medical history of hypertension (for which she takes metoprolol succinate 25 mg p.o. daily but has not been doing that for a month), who was admitted on 12/16/2019 because of abdominal pain. About 5:00 in the morning of admission, she woke up with abdominal pain, 7/10, stabbing in character, associated with nausea. She initially had dry heaves but later on started vomiting bilious material. She had an episode of acute pancreatitis 10 years ago. She was never told she had a gallbladder stone. She does give a history of alcohol intake every day 3-5 drinks. She denies fever or chills, diarrhea or constipation, denies hem atochezia or hematemesis. Her white blood cell count was normal, she does have macrocytosis, her lipase was 8659, amylase was 409, AST ALT was 213/191, calcium was 8.5, potassium was 3.1, BUN creatinine was 9 and 0.6. Her abdominal x-ray showed no acute intra-abdominal findings. Her CT scan showed an acute uncomplicated pancreatitis, diffuse nonspecific colitis correlate clinically and recommend colonoscopy when patient is better, diffuse fatty infiltration of the liver. She was given IV fluids, and IV pain medication and admitted for further evaluation and treatment. Her amylase and lipsae trended down and is back to normal today. Here WBC count is down to 10.7. she had UTI and LLL pneumonia. She is complaining of LLQ abdominal pain. Her CTS did show nonspecific colitis and a follow up AXR showed no acute intrabdominal findings. We sent a IBD and celiac panel. She has not made BM since her admisson. She was also told that the the number of narcotics she took for her abdominal pain and the fact that she has been NPO for the most part of her admission, she can be constipated from slow peristalsis. Her AXR did not show stool retention. She will need an outpatient colonoscopy when she is much better. She will need to establish with a PCP. She can follow up with me x 1. We will sent her home on Augmentin, Azithromycin, Colace, tramadol and metoprolol succinate. She will need to be on low fat, low fiber diet for now and then go back to her regular , high fiber diet. Procedures Performed: none Results and Findings: Pending Mircobiology Results 12/17/19 17:46 Blood Blood Culture - Preliminary NO GROWTH 24 HOURS 12/17/19 17:12 Blood Blood Culture - Preliminary NO GROWTH 24 HOURS Lab Pending Results 12/16/19 06:55: WBC 5.8, RBC 3.66 L, Hgb 13.8, Hct 39.0, MCV 106.6 H, MCH 37.7 H, MCHC 35.4, RDW 11.9, Plt Count 209, MPV 9.4, Immature Gran % (Auto) 0.50 H, Immature Gran # (Auto) 0.03, Neutrophils % 53.5, Lymphocytes % 34.2, Monocytes % 10.1 H, Eosinophils % 1.4, Basophils % 0.3, Nucleated RBC % 0.0, Neutrophils # 3.1, Lymphocytes # 1.99, Monocytes # 0.6, Eosinophils # 0.1, Absolute Basophils 0.0 12/16/19 06:55: Sodium 140, Plasma Sodium 141, Potassium 3.1 L, Chloride 102, Carbon Dioxide 20.3 L, Anion Gap 20.8 H, BUN 9, Creatinine 0.65, Est GFR (Non-Af Amer) 110, BUN/Creatinine Ratio 13.8, Random Glucose 146 H, Calcium 8.5, Calcium Adj for Albumin 8.3 L, Total Bilirubin 0.7, AST 213 H, ALT 191 H, Alkaline Phosphatase 57, Total Protein 7.0, Albumin 3.9, Amylase 409 H, Lipase 8659 H 12/16/19 06:55: Lactate Dehydrogenase 227, Ethyl Alcohol 128.0 H 12/16/19 08:02: Urine HCG, Qual Negative 12/16/19 19:30: Vitamin B12 316, Folate 12.1 12/16/19 : Magnesium 1.6 12/17/19 08:33: WBC 12.3 H D, RBC 3.86 L, Hgb 14.7, Hct 42.0, MCV 108.8 H, MCH 38.1 H, MCHC 35.0, RDW 12.1, Plt Count 158, MPV 10.0, Immature Gran % (Auto) 0.30, Immature Gran # (Auto) 0.04 H, Neutrophils % 90.5 H, Lymphocytes % 4.1 L, Monocytes % 4.8, Eosinophils % 0.1, Basophils % 0.2, Nucleated RBC % 0.0, Neutrophils # 11.1 H, Lymphocytes # 0.50 L, Monocytes # 0.6, Eosinophils # 0.0, Absolute Basophils 0.0 12/17/19 08:33: Sodium 136, Plasma Sodium 137, Potassium 3.6, Chloride 99, Carbon Dioxide 26.4, Anion Gap 14.2 H, BUN 10, Creatinine 0.57, Est GFR (Non-Af Amer) 128, BUN/Creatinine Ratio 17.5, Random Glucose 134 H, Calcium 7.4 L, Calcium Adj for Albumin 7.6 L, Total Bilirubin 1.5 H, AST 94 H, ALT 113 H, Alkaline Phosphatase 42 L, Total Protein 6.4, Albumin 3.3 L, Lipase 2562 H 12/17/19 09:55: Urine Color Dark yellow, Urine Appearance Clear, Urine pH 6.5, Ur Specific [place] >=1.030, Urine Protein 30 H, Urine Glucose (UA) Negative, Urine Ketones 50, Urine Blood 50 H, Urine Nitrate Positive H, Urine Bilirubin 3 H, Urine Ictotest Negative, Prot Sulfosalicylic Acd 2+ H, Urine Urobilinogen Normal, Ur Leukocyte Esterase Negative, Urine RBC Trace, Urine WBC 0-5, Ur Epithelial Cells 5-10 H, Urine Bacteria 3+ H, Urine Mucus Moderate - 2+ H, Urine Culture Comments Culture to follow 12/18/19 06:50: WBC 11.8 H, RBC 3.30 L, Hgb 12.5, Hct 36.1 L, MCV 109.4 H, MCH 37.9 H, MCHC 34.6, RDW 11.9, Plt Count 137 L, MPV 10.6, Immature Gran % (Auto) 0.30, Immature Gran # (Auto) 0.04 H, Neutrophils % 88.4 H, Lymphocytes % 6.2 L, Monocytes % 4.8, Eosinophils % 0.1, Basophils % 0.2, Nucleated RBC % 0.0, Neutrophils # 10.5 H, Lymphocytes # 0.73 L, Monocytes # 0.6, Eosinophils # 0.0, Absolute Basophils 0.0 12/18/19 06:50: Sodium 131 L, Plasma Sodium 131, Potassium 3.5, Chloride 100, Carbon Dioxide 21.9 L, Anion Gap 12.6, BUN 6, Creatinine 0.52, Est GFR (Non-Af Amer) 142 H, BUN/Creatinine Ratio 11.5, Random Glucose 95, Calcium 6.2 L, Calcium Adj for Albumin 7.0 L, Total Bilirubin 1.2 H, AST 55 H, ALT 65, Alkaline Phosphatase 41 L, Total Protein 5.4 L, Albumin 2.6 L, Amylase 248 H, Lipase 719 H 12/19/19 07:00: WBC 10.7 H, RBC 3.11 L, Hgb 11.8 L, Hct 34.1 L, MCV 109.6 H, MCH 37.9 H, MCHC 34.6, RDW 11.9, Plt Count 139 L, MPV 10.3, Neutrophils % (Manual) 87 H, Lymphocytes % (Manual) 6 L, Monocytes % (Manual) 7, Neutrophils # (Manual) 9.3 H, Lymphocytes # (Manual) 0.6 L, Monocytes # (Manual) 0.7, Platelet Estimate Normal, RBC Morphology Normal 12/19/19 07:00: Sodium 130 L, Plasma Sodium 130, Potassium 3.0 L, Chloride 97, Carbon Dioxide 23.7 L, Anion Gap 12.3, BUN 5, Creatinine 0.61, Est GFR (Non-Af Amer) 118, BUN/Creatinine Ratio 8.2 L, Random Glucose 85, Calcium 6.5 L, Calcium Adj for Albumin 7.3 L, Total Bilirubin 1.0, AST 54 H, ALT 58, Alkaline Phosphatase 50, Total Protein 5.6 L, Albumin 2.6 L, Lipase 231 Discharge Location: Home Disposition: Home self-care Condition: Stable Discharge Activity: Activity as tolerated Discharge Diet: Low fat/chol, Low Fiber Additional Patient Instructions (free text): Follow up with PCP . May follow up with me x 1. Will need an outpatient colonoscopy when more clinically better. Prescriptions (Any new or edited meds): Amox Tr/Potassium Clavulanate [Augmentin 875-125 Tablet] 875 mg PO Q12H 14 Days #20 tab Transmission Status: Pending to [facility] #[id number] Azithromycin 250 mg PO DAILY #3 tab Transmission Status: Pending to [facility] #[id number] Docusate Sodium [Colace] 100 mg PO DAILY #30 cap Transmission Status: Pending to [facility] #[id number] Metoprolol Succinate 25 mg PO DAILY #30 tab.er.24h Transmission Status: Pending to [facility] #[id number] Metoprolol Succinate [Toprol Xl] 25 mg PO DAILY #30 tablet.sa Transmission Status: Pending to [facility] #[id number] traMADol HCL [Tramadol HCl] 50 mg PO QID PRN #28 tablet PRN Reason: Pain Transmission Status: Received by [facility] #[id number] Calcium Carbonate [Tums] 500 mg PO QID PRN #30 tab.chew PRN Reason: Dyspepsia Transmission Status: Pending to [facility] #[id number] Azithromycin [Zithromax] 250 mg PO DAILY@1900 3 Days #3 tab Transmission Status: Pending to [facility] #[id number] Complete Home Medications List: Complete Home Medication List: Levonorgestrel [Mirena] 1 ea IY ONCE 12/16/19 Amox Tr/Potassium Clavulanate [Augmentin 875-125 Tablet] 875 mg PO Q12H 14 Days #20 tab 12/19/19 Azithromycin [Zithromax] 250 mg PO DAILY@1900 3 Days #3 tab 12/19/19 Calcium Carbonate [Tums] 500 mg PO QID PRN #30 tab.chew 12/19/19 Docusate Sodium [Colace] 100 mg PO DAILY #30 cap 12/19/19 Metoprolol Succinate [Toprol Xl] 25 mg PO DAILY #30 tablet.sa 12/19/19 traMADol HCL [Tramadol HCl] 50 mg PO QID PRN #28 tablet 12/19/19
[2019-12-19 13:05] VITALS: BP 144/90
[2019-12-20] MEDS ORDERED: PANTOPRAZOLE SODIUM 40 MG TABLET.EC PO SCH (07:00)
[2019-12-23 13:00] LABS: P-ANCA Titer DNR titer (<1:20)
== END 2019-12-19 13:44 | disposition home or self-care (01) | DRG 438 ==
LOC: ER 06:29 → MS 06:29
PROVIDERS: ADMIT Internal Medicine; ATTEND Internal Medicine
CPT/HCPCS: 36415; 71020; 71046; 74019; 74020; 74177; 80053; 81001; 82150; 82607; 82746; 82784; 83516; 83615; 83690; 83735; 84703; 85007; 85025; 86021; 87040; 87086; 96361; 96374; 96375; 96376; 99285; J2405; Q9963; Q9967

== ENCOUNTER 2020-03-12 12:51 | Inpatient (IN) ==
[2020-03-12] MEDS ORDERED: ONDANSETRON HCL/PF 2 MG/ML VIAL IV ONE ×2 (13:13→16:21)
[2020-03-12] MEDS ORDERED: MORPHINE SULFATE 4 MG/ML SYRG IV ONE (13:15)
[2020-03-12] MEDS ORDERED: NORMAL SALINE 1,000 ML IV ONE (13:15)
[2020-03-12 13:35] LABS: Hematocrit 41.1 % (37.0-47.0); Mean Cell Volume 105.7 fl (78-100); Mean Corpuscular Hgb Conc 34.1 g/dl (32-36); Mean Platelet Volume 10.4 fl (8-12.5); Neutrophil # 5.5 K/mm3 (1.3-6.0); Neutrophil % 83.7 % (42-75.0); Platelet Count 168 K/mm3 (150-450); Red Blood Count 3.89 M/mm3 (4.2-5.4); Red Cell Distribution Width 14.4 % (11.5-14.0); White Blood Count 6.6 K/mm3 (4.0-10.5)
[2020-03-12 13:50] LABS: Albumin * 4.2 gm/dl (3.4-5.0); Anion Gap 16.1 mmol/L (6.8-13.8); BUN/Creatinine Ratio 16.4 (9.0-21.6); Bilirubin, Total 1.3 mg/dL (0.0-1.1); Calcium * 9.5 mg/dL (7.9-10.9); Carbon Dioxide 26.2 mmol/L (24-32.6); Potassium 4.3 mmol/L (3.4-4.6); Total Protein 7.5 gm/dL (6.2-8.2)
[2020-03-12] MEDS ORDERED: PANTOPRAZOLE SODIUM 40 MG/100 ML PIGGYBACK IV ONE (14:17)
[2020-03-12] MEDS ORDERED: HYDROmorphone HCL 1 MG/ML DISP.SYRIN IV ONE (14:33)
[2020-03-12 15:21] LABS: Urine Bilirubin 1 mg/dl (NEGATIVE); Urine Blood Negative /ul (NEGATIVE); Urine Ketone 50 mg/dL (NEGATIVE); Urine Nitrite Negative (NEGATIVE); Urine Protein 15 mg/dL (NEGATIVE); Urine Specific Gravity 1.025 SP.GR. (1.005-1.010); Urine Urobilinogen Normal (NORMAL); Urine pH 6.5 pH (5.0-7.0)
[2020-03-12 15:54] LABS: Urine Appearance Slightly Cloudy (CLEAR); Urine Color Amber
[2020-03-12 15:56] LABS: Urine Bacteria 4+; Urine RBC None Seen /hpf (0-5); Urine WBC TRACE /hpf (0-5)
--- NOTE | 2020-03-12 16:25 | ERNOTE ---
Abdominal HPI - Narrative Date of Service: 03/12/20 - General Chief Complaint: Abdominal Pain Time Seen by Provider: 03/12/20 13:09 Source: patient Exam Limitations: no limitations - Immun/Allergies/Home Medications Immunizatons: IMMUNIZATION HX Immunizations Up to Date Yes History of Influenza Vaccine No Hx Pneumococcal Vaccination No Allergies/Adverse Reactions: Allergies No Known Allergies Allergy (Verified 03/12/20 13:05) Home Medications: HOME MEDICATIONS Levonorgestrel [Mirena] 1 ea IY ONCE 12/16/19 [Last Taken Unknown] Calcium Carbonate [Tums] 500 mg PO QID PRN #30 tab.chew 12/19/19 [Last Taken Unknown] Metoprolol Succinate [Toprol Xl] 25 mg PO DAILY #30 tablet.sa 12/19/19 [Last Taken Unknown] - History of Present Illness Narrative: patient presents to ed with c/o nausea, vomiting and abdominal; pain, hx of pancreatitis Timing: constant, getting worse Quality: moderate, aching Activities at Onset: none Modifying Factors - (Improves): Present: other - nothing Modifying Factors - (Worsens): Present: other - nothing Associated Symptoms: Present: heartburn Prior Abdominal Problems: Present: similar symptoms Prior Treatment: Present: other - none Review of Systems - Review of Systems Constitutional: Present: See HPI EYE: Present: no symptoms reported ENT: Present: no symptoms reported Respiratory: Present: no symptoms reported Cardiology: Present: no symptoms reported Gastrointestinal/Abdominal: Present: See HPI, nausea, vomiting, abdominal pain, eating less, drinking less Genitourinary: Present: no symptoms reported Musculoskeletal: Present: no symptoms reported Skin: Present: no symptoms reported Neurological: Present: no symptoms reported Endocrine: Present: no symptoms reported Hematologic/Lymphatic: Present: no symptoms reported Psych: Present: no symptoms reported All Other Systems: All systems neg except as marked Medical History (Last Reviewed 03/12/20 @ 13:05 by Liza Morris RN) Pancreatitis Surgical History: Surgical History (Last Reviewed 03/12/20 @ 13:05 by Liza Morris RN) History of myringotomy History of tonsillectomy and adenoidectomy Family History: Family History (Last Updated 03/12/20 @ 13:05 by Liza Morris RN) Other No pertinent family history Social History: (Last Reviewed 03/12/20 @ 13:05 by Liza Arturo, RN) Tobacco: Smoking Status: Never smoker Alcohol: alcohol intake: current Alcohol type: hard liquor alcohol intake frequency: 3 or more drinks per day Substance Use: substance use type: does not use Physical Exam - Physical Exam General Appearance: Present: moderate distress, anxious Head Exam: Present: normal inspection, no evidence of injury Eye Exam: Normal inspection: bilateral, PERRL: bilateral, EOMI: bilateral Ears, Nose, Throat: Present: normal ENT inspection, normal pharynx Neck: Present: normal inspection, nontender Respiratory: Present: no respiratory distress, normal breath sounds, no accessory muscle use, chest nontender, lungs clear Cardiovascular/Chest: Present: regular rate, rhythm, no murmur, normal peripheral pulses Gastrointestinal/Abdominal: Present: tenderness, abnormal bowel sounds, distended Back Exam: Present: normal inspection, normal range of motion, no CVA tenderness, no vertebral tenderness Extremity Exam: Present: normal inspection, non-tender, normal range of motion, no edema Neurological Exam: Present: alert, oriented, normal mood/affect, no motor/sensory deficits Skin Exam: Present: normal color, warm/dry Lymphatic Exam: Present: no adenopathy Progress - Date and Time Seen: Date and Time: 03/12/20 16:22 patient currently nauseated, reviewed lab and us , case discussed with dr silva accepted for admission - Results and Orders Patient's Lab Results:: I have reviewed the patient's lab results. - Vital Signs Patient's Vital Signs:: I have reviewed the patient's vital signs. Vital Signs: Vital Signs 03/12/20 13:02 03/12/20 13:31 03/12/20 14:28 Temperature 36.5 C Pulse Rate 94 102 H 90 Respiratory Rate 16 14 17 Blood Pressure 132/91 H 146/100 H 143/101 H O2 Sat by Pulse Oximetry 100 99 100 - X-Ray X-Ray #1 X-Ray: abdomen Interpretation: Discd w/ radiologist - nsbgp - CT/Ultrasound CT/Ultrasound Narrative: normal gb and liver, fluid around pancreas - Progress/Reassessment Chief Complaint: Abdominal Pain - Transfer of Care Expected Disposition: Admit Plan - Plan Plan: to admit to hospital Departure Clinical Impression: Acute pancreatitis - Departure Disposition: Short Term Hospital Inpatient Condition: Fair
[2020-03-12] MEDS ORDERED: HYDROmorphone HCL 1 MG/ML DISP.SYRIN IV PRN (16:35)
[2020-03-12] MEDS ORDERED: NORMAL SALINE 1,000 ML IV PRN (16:35)
[2020-03-12] MEDS: ONDANSETRON HCL/PF 2 MG/ML VIAL IV PRN (21:06)
[2020-03-12] MEDS ORDERED: MORPHINE SULFATE 4 MG/ML SYRG IV PRN (21:20)
[2020-03-12] MEDS ORDERED: PROMETHAZINE HCL 25 MG TABLET PO ONE (21:22)
--- NOTE | 2020-03-12 21:23 | HP ---
Chief Complaint - Chief Complaint Date of Service: 03/12/20 Time of Service: 21:22 Chief Complaint: Abdominal pain History of Present Illness: 34-year-old female history of recent pancreatitis presented to the ER following a couple days of abdominal pain, nausea, vomiting. Patient recently seen in the hospital for pancreatitis a few months back. Patient does admit to drinking but denies it being heavy use. Patient's only medical history is that of high blood pressure which is normally well controlled metoprolol. Patient denies changes in her stool, fever or chills, dizzy or lightheadedness. Patient's initial blood work was fairly benign aside from an elevated lipase. Normal white count. Vital signs been stable and she been afebrile here. Patient admitted to the inpatient floor for pain control and pancreatic rest. Patient received a bolus of normal saline in the ER. Fluids currently being ran at 125. Medical History (Last Reviewed 03/12/20 @ 18:01 by Latonia Araiza RN) Anxiety Pancreatitis Surgical History: Surgical History (Last Reviewed 03/12/20 @ 17:33 by Latonia Araiza RN) History of myringotomy History of tonsillectomy and adenoidectomy Family History: Family History (Last Reviewed 03/12/20 @ 17:34 by Latonia Araiza RN) Other No pertinent family history Social History: (Last Reviewed 03/12/20 @ 17:35 by Latonia Araiza RN) Social History: Marital status: lives independently: Yes household members: spouse current occupational status: employed Highest education level completed: Associate degree: academi Service: No Tobacco: Smoking Status: Never smoker Alcohol: alcohol intake: current Alcohol type: hard liquor alcohol intake frequency: 3 or more drinks per day Substance Use: substance use type: does not use Dietary Habits: caffeine: Yes Type: carbonated beverages, coffee, tea Review Of Systems (GEN) - Review of Systems Generalized/Overall Review: Absent: Weakness, Chills, Fever EENTM: Present: No Symptoms Reported Respiratory: Present: No Symptoms Reported Cardiac: Present: No Symptoms Reported Abdominal: Present: Nausea, Vomiting, Abdominal Pain Genitourinary: Present: No Symptoms Reported Musculoskeletal: Present: No Symptoms Reported Neurological: Present: No Symptoms Reported Skin: Present: No Symptoms Reported Endocrine: Present: No Symptoms Reported Immunizations: IMMUNIZATION HX Immunizations Up to Date Yes History of Influenza Vaccine No Hx Pneumococcal Vaccination No Allergies/Adverse Reactions: Allergies Allergy/AdvReac Type Severity Reaction Status Date / Time No Known Allergies Allergy Verified 03/12/20 17:35 Home Medications: HOME MEDICATIONS Levonorgestrel [Mirena] 1 ea IY ONCE 12/16/19 [Last Taken Unknown] Calcium Carbonate [Tums] 500 mg PO QID PRN #30 tab.chew 12/19/19 [Last Taken Unknown] Metoprolol Succinate [Toprol Xl] 25 mg PO DAILY #30 tablet.sa 12/19/19 [Last Taken Unknown] Exam - Exam Vital Signs: Vital Signs - Last Taken Temp 36 C 03/12/20 17:41 Pulse 93 03/12/20 17:41 Resp 13 03/12/20 17:41 BP 168/109 H 03/12/20 17:41 Pulse Ox 100 03/12/20 17:41 Constitutional: Present: Alert, Oriented x3, Cooperative, Well developed, Mild distress - abdominal pain ENT Exam: Present: hearing grossly normal. Absent: nasal congestion, nasal drainage Eye Exam: bilateral eye: normal inspection, PERRL Neck: Present: non-tender, supple Respiratory: Present: lungs clear, normal breath sounds Cardiovascular/Chest: Present: regular rate, rhythm, no murmur Abdomen: Present: tender - RUQ Skin Exam: Present: normal color, warm/dry Appearance: Present: appropriate appearance, appropriate insight Eye contact: Present: cooperative, good eye contact Thoughts: Present: normal thought pattern, normal mood /affect Diagnostic Studies: Abnormal Lab Results 03/12/20 03/12/20 03/12/20 Range/Units 13:25 13:25 14:51 RBC 3.89 L (4.2-5.4) M/mm3 MCV 105.7 H (78-100) fl MCH 36.0 H (27-31) pg RDW 14.4 H (11.5-14.0) % Neutrophils % 83.7 H (42-75.0) % Lymphocytes % 8.9 L (20-51) % Lymphocytes # 0.59 L (1.5-3.5) k/mm3 Anion Gap 16.1 H (6.8-13.8) mmol/L Est GFR (Non-Af Amer) 133 H (60-130) mL/min Random Glucose 114 H (70-110) mg/dL Total Bilirubin 1.3 H (0.0-1.1) mg/dL AST 282 H (0-48) U/L ALT 193 H (19-67) U/L Amylase 188 H (25-115) U/L Lipase 2034 H (73-393) U/L Urine Protein 15 H (NEGATIVE) mg/dL Urine Bilirubin 1 H (NEGATIVE) mg/dl Urine Ictotest Positive H (NEGATIVE) Urine WBC Trace H (0-5) /hpf Ur Epithelial Cells >25 H (0-5) /hpf Urine Bacteria 4+ H (NONE) Laboratory Results WBC 6.6 K/mm3 (4.0-10.5) 03/12/20 13:25 RBC 3.89 M/mm3 (4.2-5.4) L 03/12/20 13:25 Hgb 14.0 gm/dL (12.5-16.0) 03/12/20 13:25 Hct 41.1 % (37.0-47.0) 03/12/20 13:25 MCV 105.7 fl (78-100) H 03/12/20 13:25 MCH 36.0 pg (27-31) H 03/12/20 13:25 MCHC 34.1 g/dl (32-36) 03/12/20 13:25 RDW 14.4 % (11.5-14.0) H 03/12/20 13:25 Plt Count 168 K/mm3 (150-450) 03/12/20 13:25 MPV 10.4 fl (8-12.5) 03/12/20 13:25 Immature Gran % (Auto) 0.30 % (0.001-0.429) 03/12/20 13:25 Immature Gran # (Auto) 0.02 K/mm3 (0.000-0.0310) 03/12/20 13:25 Neutrophils % 83.7 % (42-75.0) H 03/12/20 13:25 Lymphocytes % 8.9 % (20-51) L 03/12/20 13:25 Monocytes % 6.9 % (0.0-9) 03/12/20 13:25 Eosinophils % 0.0 % (0.0-3.0) 03/12/20 13:25 Basophils % 0.2 % (0.0-1.0) 03/12/20 13:25 Nucleated RBC % 0.0 k/mm3 (0-1) 03/12/20 13:25 Neutrophils # 5.5 K/mm3 (1.3-6.0) 03/12/20 13:25 Lymphocytes # 0.59 k/mm3 (1.5-3.5) L 03/12/20 13:25 Monocytes # 0.5 k/mm3 (0.0-1.0) 03/12/20 13:25 Eosinophils # 0.0 k/mm3 (0.0-0.7) 03/12/20 13:25 Absolute Basophils 0.0 k/mm3 (0.0-0.1) 03/12/20 13:25 Sodium 137 mmol/L (132-142) 03/12/20 13:25 Plasma Sodium 137 mmol/L (130-142) 03/12/20 13:25 Potassium 4.3 mmol/L (3.4-4.6) D 03/12/20 13:25 Chloride 99 mmol/L (97-106) 03/12/20 13:25 Carbon Dioxide 26.2 mmol/L (24-32.6) 03/12/20 13:25 Anion Gap 16.1 mmol/L (6.8-13.8) H 03/12/20 13:25 BUN 9 mg/dL (3-23) D 03/12/20 13:25 Creatinine 0.55 mg/dL (0.4-1.4) 03/12/20 13:25 Est GFR (Non-Af Amer) 133 mL/min (60-130) H 03/12/20 13:25 BUN/Creatinine Ratio 16.4 (9.0-21.6) 03/12/20 13:25 Random Glucose 114 mg/dL (70-110) H 03/12/20 13:25 Calcium 9.5 mg/dL (7.9-10.9) 03/12/20 13:25 Calcium Adj for Albumin 9.0 mg/dL (8.4-10.2) 03/12/20 13:25 Total Bilirubin 1.3 mg/dL (0.0-1.1) H 03/12/20 13:25 AST 282 U/L (0-48) H 03/12/20 13:25 ALT 193 U/L (19-67) H 03/12/20 13:25 Alkaline Phosphatase 84 U/L (50-170) 03/12/20 13:25 Total Protein 7.5 gm/dL (6.2-8.2) 03/12/20 13:25 Albumin 4.2 gm/dl (3.4-5.0) 03/12/20 13:25 Amylase 188 U/L (25-115) H 03/12/20 13:25 Lipase 2034 U/L (73-393) H 03/12/20 13:25 Urine Color Chandrika 03/12/20 14:51 Urine Appearance Slightly cloudy (CLEAR) 03/12/20 14:51 Urine pH 6.5 pH (5.0-7.0) 03/12/20 14:51 Ur Specific [place] 1.025 SP.GR. (1.005-1.010) 03/12/20 14:51 Urine Protein 15 mg/dL (NEGATIVE) H 03/12/20 14:51 Urine Glucose (UA) Negative mg/dL (NEGATIVE) 03/12/20 14:51 Urine Ketones 50 mg/dL (NEGATIVE) 03/12/20 14:51 Urine Blood Negative /ul (NEGATIVE) 03/12/20 14:51 Urine Nitrate Negative (NEGATIVE) 03/12/20 14:51 Urine Bilirubin 1 mg/dl (NEGATIVE) H 03/12/20 14:51 Urine Ictotest Positive (NEGATIVE) H 03/12/20 14:51 Prot Sulfosalicylic Acd Negative mg/dL (0) 03/12/20 14:51 Urine Urobilinogen Normal EU/dl (NORMAL) 03/12/20 14:51 Ur Leukocyte Esterase Negative /ul (NEGATIVE) 03/12/20 14:51 Urine RBC None seen /hpf (0-5) 03/12/20 14:51 Urine WBC Trace /hpf (0-5) H 03/12/20 14:51 Ur Epithelial Cells >25 /hpf (0-5) H 03/12/20 14:51 Urine Bacteria 4+ (NONE) H 03/12/20 14:51 Urine Culture Comments Culture to follow 03/12/20 14:51 Assessment/Plan - Narrative Narrative: Patient mated for pancreatitis due to elevated lipase, abdominal pain, nausea/vomiting. Patient is afebrile, vital signs been stable. White count was normal. Clinton score not calculated due to most of her lab work being within normal limits. She did have an elevated AST which is likely indicative of her drinking which we discussed. Continue fluids and pain control. Clear liquid diet ordered that we can progress slowly. SCDs ordered for DVT prophylaxis. Continue metoprolol for blood pressure. - Assessment/Plan (1) Pancreatitis Problem: Resolved Qualifiers: Chronicity: acute Pancreatitis type: alcohol induced Acute pancreatitis complication: unspecified Qualified Code(s): K85.20 - Alcohol induced acute pancreatitis without necrosis or infection (2) Hypertension Problem: Chronic Qualifiers: Hypertension type: essential hypertension Qualified Code(s): I10 - Essential (primary) hypertension
[2020-03-12] MEDS ORDERED: LEVONORGESTREL IY SCH (21:30)
[2020-03-12] MEDS: NORMAL SALINE 1,000 ML IV SCH (21:51)
[2020-03-13] MEDS: NORMAL SALINE 1,000 ML IV SCH ×5 (02:55→22:03)
[2020-03-13] MEDS: ONDANSETRON HCL/PF 2 MG/ML VIAL IV PRN ×3 (07:40→20:08)
[2020-03-13] MEDS: MORPHINE SULFATE 2 MG/ML DISP.SYRIN IV PRN ×6 (07:40→22:08)
[2020-03-13] MEDS: METOPROLOL SUCCINATE 25 MG TABLET.SA PO SCH (08:08)
--- NOTE | 2020-03-13 13:25 | PN ---
Subjective - Date and Time Seen Date: 03/13/20 Time: 13:25 Subjective Narrative: Patient is starting for better. Abdominal pain is minimal today, patient is slightly nauseated still but denies vomiting. Previous labs stable and her pain was well controlled overnight. Patient states that she would like to try something to eat today may be possible. Objective - Review of Systems Generalized/Overall Review: Denies: Weakness, Chills, Fever EENTM: Reports: No Symptoms Reported Respiratory: Reports: No Symptoms Reported Cardiac: Reports: No Symptoms Reported Abdominal: Reports: Nausea, Abdominal Pain - Improving,. Denies: Vomiting Genitourinary Symptoms: Reports: No Symptoms Reported Neurological: Reports: No Symptoms Reported Skin: Reports: No Symptoms Reported - Vitals Vitals: Last Vital Signs Temp 36.7 C 03/13/20 06:51 Pulse 90 03/13/20 12:37 Resp 20 03/13/20 06:51 BP 148/96 H 03/13/20 08:08 Pulse Ox 99 03/13/20 06:51 - Abnormal Lab Findings Abnormal Lab Findings: Abnormal Lab Results 03/12/20 03/12/20 03/12/20 Range/Units 13:25 13:25 14:51 RBC 3.89 L (4.2-5.4) M/mm3 MCV 105.7 H (78-100) fl MCH 36.0 H (27-31) pg RDW 14.4 H (11.5-14.0) % Neutrophils % 83.7 H (42-75.0) % Lymphocytes % 8.9 L (20-51) % Lymphocytes # 0.59 L (1.5-3.5) k/mm3 Anion Gap 16.1 H (6.8-13.8) mmol/L Est GFR (Non-Af Amer) 133 H (60-130) mL/min Random Glucose 114 H (70-110) mg/dL Total Bilirubin 1.3 H (0.0-1.1) mg/dL AST 282 H (0-48) U/L ALT 193 H (19-67) U/L Amylase 188 H (25-115) U/L Lipase 2034 H (73-393) U/L Urine Protein 15 H (NEGATIVE) mg/dL Urine Bilirubin 1 H (NEGATIVE) mg/dl Urine Ictotest Positive H (NEGATIVE) Urine WBC Trace H (0-5) /hpf Ur Epithelial Cells >25 H (0-5) /hpf Urine Bacteria 4+ H (NONE) - Exam Constitutional: Present: Alert, Oriented x3, Cooperative Respiratory: Present: lungs clear, normal breath sounds Cardiovascular/Chest: Present: regular rate, rhythm, no murmur Abdomen: Present: Normal bowel sounds, soft, tender - Right upper quadrant. Absent: guarding Skin Exam: Present: normal color, warm/dry Appearance: Present: appropriate appearance, appropriate insight Eye contact: Present: cooperative, good eye contact Thoughts: Present: normal thought pattern, normal mood /affect Assessment/Plan Plan Narrative: Patient is a better. Lab work and vital signs were stable over last 4 hours, no need to repeat them at this time. We will go ahead and get patient started on a clear diet and advised both her and the nurses to advance slowly. Continue fluids until patient tolerating diet. SCDs on while in bed. - Problems/Diagnosis (1) Pancreatitis Problem: Resolved Qualifiers: Chronicity: acute Pancreatitis type: alcohol induced Acute pancreatitis complication: unspecified Qualified Code(s): K85.20 - Alcohol induced acute pancreatitis without necrosis or infection (2) Hypertension Problem: Chronic Qualifiers: Hypertension type: essential hypertension Qualified Code(s): I10 - Essential (primary) hypertension
[2020-03-14] MEDS: NORMAL SALINE 1,000 ML IV SCH ×4 (03:07→20:15)
[2020-03-14] MEDS: ONDANSETRON HCL/PF 2 MG/ML VIAL IV PRN ×3 (07:56→17:53)
[2020-03-14] MEDS: MORPHINE SULFATE 2 MG/ML DISP.SYRIN IV PRN ×5 (07:56→21:33)
[2020-03-14] MEDS: METOPROLOL SUCCINATE 25 MG TABLET.SA PO SCH (07:59)
--- NOTE | 2020-03-14 16:31 | PN ---
Subjective - Date and Time Seen Date: 03/14/20 Time: 16:22 Subjective Narrative: Patient is resting comfortably, pain is improving. She is starting tolerating clears though we are progressing her diet slowly due to the discomfort that she still does get. No longer having nausea or vomiting. Vital signs stable overnight, no acute events overnight. Likely home tomorrow. Objective - Review of Systems Generalized/Overall Review: Reports: No Symptoms Reported EENTM: Reports: No Symptoms Reported Respiratory: Reports: No Symptoms Reported Cardiac: Reports: No Symptoms Reported Abdominal: Reports: Nausea, Abdominal Pain. Denies: Vomiting Genitourinary Symptoms: Reports: No Symptoms Reported Musculoskeletal Complaints: Reports: No Symptoms Reported Neurological: Reports: No Symptoms Reported - Vitals Vitals: Last Vital Signs Temp 36.8 C 03/14/20 14:02 Pulse 83 03/14/20 14:02 Resp 17 03/14/20 14:02 BP 141/90 H 03/14/20 14:02 Pulse Ox 98 03/14/20 14:02 - Exam Constitutional: Present: Alert, Oriented x3, Cooperative Abdomen: Present: soft, nondistended, tender - RUQ, improving. Absent: guarding, rigidity, rebound tenderness Skin Exam: Present: normal color, warm/dry Appearance: Present: appropriate appearance, appropriate insight Eye contact: Present: cooperative, good eye contact Thoughts: Present: normal thought pattern, normal mood /affect Assessment/Plan Plan Narrative: Patient's pain improving, pain medicine being spaced out further. She started to tolerate clears so we will slowly advance her diet. We will decrease her fluids to 100 mls/hr. Blood pressure stable Continue SCDs for DVT prophylaxis Nurse to call questions or concerns - Problems/Diagnosis (1) Pancreatitis Problem: Resolved Qualifiers: Chronicity: acute Pancreatitis type: alcohol induced Acute pancreatitis complication: unspecified Qualified Code(s): K85.20 - Alcohol induced acute pancreatitis without necrosis or infection (2) Hypertension Problem: Chronic Qualifiers: Hypertension type: essential hypertension Qualified Code(s): I10 - Essential (primary) hypertension
[2020-03-15] MEDS: NORMAL SALINE 1,000 ML IV SCH (06:22)
[2020-03-15] MEDS: ONDANSETRON HCL/PF 2 MG/ML VIAL IV PRN (06:32)
[2020-03-15] MEDS: MORPHINE SULFATE 2 MG/ML DISP.SYRIN IV PRN (06:34)
[2020-03-15] MEDS: METOPROLOL SUCCINATE 25 MG TABLET.SA PO SCH (08:32)
--- NOTE | 2020-03-15 10:24 | DS ---
(1) Pancreatitis Problem: Resolved Qualifiers: Chronicity: acute Pancreatitis type: alcohol induced Acute pancreatitis complication: unspecified Qualified Code(s): K85.20 - Alcohol induced acute pancreatitis without necrosis or infection (2) Hypertension Problem: Chronic Qualifiers: Hypertension type: essential hypertension Qualified Code(s): I10 - Essential (primary) hypertension Date of Discharge:: 03/15/20 Hospital Course: 34-year-old presented to the hospital with acute right upper quadrant pain. Patient has history of pancreatitis in the past, this was determined to grow with her at this time. Lipase was elevated. Rest of her lab work was benign other than slightly elevated AST but she had normal white count normal glucose. No Walker score was calculated due to this fact. Patient clinically improve daily, tolerating clears on the day after admission and was advanced to full diet the following day. Today she is able to eat her breakfast without discomfort, states she feels under 10% better. Vital signs been stable she is been afebrile. Discussed starting to reintroduce foods again slowly and minimizing alcohol intake. Patient follow with her PCP in 1 week which she agrees to do. Patient's blood pressure also fairly well controlled while here. No changes to her medications. Patient discharged home in stable condition. Procedures Performed: none Results and Findings: Lab Pending Results 03/12/20 13:25: WBC 6.6, RBC 3.89 L, Hgb 14.0, Hct 41.1, MCV 105.7 H, MCH 36.0 H, MCHC 34.1, RDW 14.4 H, Plt Count 168, MPV 10.4, Immature Gran % (Auto) 0.30, Immature Gran # (Auto) 0.02, Neutrophils % 83.7 H, Lymphocytes % 8.9 L, Monocytes % 6.9, Eosinophils % 0.0, Basophils % 0.2, Nucleated RBC % 0.0, Neutrophils # 5.5, Lymphocytes # 0.59 L, Monocytes # 0.5, Eosinophils # 0.0, Absolute Basophils 0.0 03/12/20 13:25: Sodium 137, Plasma Sodium 137, Potassium 4.3 D, Chloride 99, Carbon Dioxide 26.2, Anion Gap 16.1 H, BUN 9 D, Creatinine 0.55, Est GFR (Non- Af Amer) 133 H, BUN/Creatinine Ratio 16.4, Random Glucose 114 H, Calcium 9.5, Calcium Adj for Albumin 9.0, Total Bilirubin 1.3 H, AST 282 H, ALT 193 H, Alkaline Phosphatase 84, Total Protein 7.5, Albumin 4.2, Amylase 188 H, Lipase 2034 H 03/12/20 14:51: Urine Color Chandrika, Urine Appearance Slightly cloudy, Urine pH 6.5, Ur Specific [place] 1.025, Urine Protein 15 H, Urine Glucose (UA) Negative, Urine Ketones 50, Urine Blood Negative, Urine Nitrate Negative, Urine Bilirubin 1 H, Urine Ictotest Positive H, Prot Sulfosalicylic Acd Negative, Urine Urobilinogen Normal, Ur Leukocyte Esterase Negative, Urine RBC None seen, Urine WBC Trace H, Ur Epithelial Cells >25 H, Urine Bacteria 4+ H, Urine Culture Comments Culture to follow Discharge Location: Home Disposition: Home self-care Condition: Fair Discharge Activity: Activity as tolerated Discharge Diet: General/regular food Complete Home Medications List: Complete Home Medication List: Levonorgestrel [Mirena] 1 ea IY ONCE 12/16/19 Calcium Carbonate [Tums] 500 mg PO QID PRN #30 tab.chew 12/19/19 Metoprolol Succinate [Toprol Xl] 25 mg PO DAILY #30 tablet.sa 12/19/19 Forms: Patient Portal Registration
[2020-03-15] MEDS ORDERED: NORMAL SALINE 1,000 ML IV PRN (10:45)
[2020-03-15 15:35] VITALS: BP 149/97
== END 2020-03-15 15:40 | disposition home or self-care (01) | DRG 440 ==
LOC: ER 12:51 → MS 16:30
PROVIDERS: ADMIT Family Medicine; ATTEND Family Medicine
CPT/HCPCS: 36415; 74019; 74020; 76700; 80053; 81001; 82150; 83690; 85025; 87086; 96365; 96375; 99283; 99285; J2405

== ENCOUNTER 2020-08-27 07:53 | Inpatient (IN) ==
[2020-08-27] MEDS ORDERED: diphenhydrAMINE HCL 50 MG/ML VIAL IV ONE (08:08)
[2020-08-27] MEDS ORDERED: DIATRIZOATE MEGLUMINE, SODIUM 30 ML BTL PO ONE (08:08)
[2020-08-27] MEDS ORDERED: NORMAL SALINE 1,000 ML IV ONE ×2 (08:08→11:51)
[2020-08-27] MEDS ORDERED: LORazepam 2 MG/ML DISP.SYRIN IV ONE (08:12)
[2020-08-27] MEDS ORDERED: PROCHLORPERAZINE EDISYLATE 5 MG/ML VIAL IV ONE (08:12)
[2020-08-27] MEDS ORDERED: HYDROmorphone HCL 1 MG/ML DISP.SYRIN IM ONE (08:12)
[2020-08-27 08:24] LABS: Hematocrit 39.7 % (37.0-47.0); Hemoglobin 13.7 gm/dL (12.5-16.0); Mean Cell Volume 109.7 fl (78-100); Mean Corpuscular Hemoglobin 37.8 pg (27-31); Mean Corpuscular Hgb Conc 34.5 g/dl (32-36); Mean Platelet Volume 10.5 fl (8-12.5); Neutrophil # 2.8 K/mm3 (1.3-6.0); Neutrophil % 75.9 % (42-75.0); Platelet Count 131 K/mm3 (150-450); Red Blood Count 3.62 M/mm3 (4.2-5.4); White Blood Count 3.7 K/mm3 (4.0-10.5)
--- NOTE | 2020-08-27 08:30 | ERNOTE ---
Abdominal HPI - Narrative Date of Service: 08/27/20 - General Chief Complaint: Abdominal Pain Time Seen by Provider: 08/27/20 08:06 Source: patient Exam Limitations: no limitations - Immun/Allergies/Home Medications Immunizatons: IMMUNIZATION HX Immunizations Up to Date Yes History of Influenza Vaccine No Hx Pneumococcal Vaccination No Allergies/Adverse Reactions: Allergies No Known Allergies Allergy (Verified 08/27/20 08:06) Home Medications: HOME MEDICATIONS Levonorgestrel [Mirena] 1 ea IY ONCE 12/16/19 [Last Taken Unknown] Calcium Carbonate [Tums] 500 mg PO QID PRN #30 tab.chew 12/19/19 [Last Taken Unknown] Metoprolol Succinate [Toprol Xl] 25 mg PO DAILY #30 tablet.sa 12/19/19 [Last Taken Unknown] Ondansetron [Zofran Odt] 4 mg PO Q4H PRN #20 tab 08/26/20 [Last Taken Unknown] oxyCODONE HCL/ACETAMINOPHEN [Percocet 5 MG/325 MG] 1 - 2 tab PO Q4H PRN #30 tab 08/26/20 [Last Taken Unknown] - History of Present Illness Narrative: Patient presents to the ED for "pancreatitis". She has Hx of pancreatitis. She was eeen here yesterday and Dx with recurrent pancreatitis. There were no beds available due to the Covid pandemic so she was sent home but she states she cannot do it a home. Severe pain despite meds and vomiting. Shaky. She had Sx that started 3 days ago. Severe upper abdominal pain into her back. She drinks alcohol every night, wine but only rarely feels shke if she does not drink. Timing: constant, getting worse Quality: severe Activities at Onset: none Modifying Factors - (Improves): Present: other - nothing Modifying Factors - (Worsens): Present: eating Associated Symptoms: Present: back pain. Absent: chest pain, diarrhea-gross blood, diarrhea-mucous, fever/chills, shortness of breath Prior Abdominal Problems: Present: similar symptoms Prior Treatment: Present: recently seen, treated by physician Review of Systems - Review of Systems Constitutional: Absent: fever EYE: Present: no symptoms reported ENT: Absent: pulling on ears Respiratory: Absent: shortness of breath Cardiology: Absent: chest pain Gastrointestinal/Abdominal: Present: See HPI Genitourinary: Absent: dysuria Neurological: Absent: weakness All Other Systems: All systems neg except as marked Medical History (Last Reviewed 08/27/20 @ 08:29 by Gallo Ingram MD) Anxiety Pancreatitis Surgical History: Surgical History (Last Reviewed 08/27/20 @ 08:29 by Gallo Ingram MD) History of myringotomy History of tonsillectomy and adenoidectomy Family History: Family History (Last Reviewed 08/27/20 @ 08:29 by Gallo Ingram MD) Other No pertinent family history Social History: (Last Reviewed 08/27/20 @ 08:29 by Gallo Ingram MD) Social History: Marital status: lives independently: Yes household members: spouse current occupational status: employed Highest education level completed: Associate degree: academi Service: No Tobacco: Smoking Status: Never smoker Alcohol: alcohol intake: current Alcohol type: hard liquor alcohol intake frequency: 3 or more drinks per day Substance Use: substance use type: does not use Dietary Habits: caffeine: Yes Type: carbonated beverages, coffee, tea Physical Exam - Physical Exam General Appearance: Present: alert, no apparent distress Head Exam: Present: normal inspection, no evidence of injury Eye Exam: Normal inspection: bilateral, PERRL: bilateral Ears, Nose, Throat: Present: normal ENT inspection Neck: Present: normal inspection Respiratory: Present: no respiratory distress, normal breath sounds, no accessory muscle use, lungs clear Cardiovascular/Chest: Present: regular rate, rhythm, normal peripheral pulses Gastrointestinal/Abdominal: Present: normal bowel sounds, soft, tenderness, other - Upper abdominal tenderness to palpation, no peritoneal sigbns Back Exam: Absent: CVA tenderness (R), CVA tenderness (L) Extremity Exam: Present: normal inspection, normal range of motion Neurological Exam: Present: alert, no motor/sensory deficits Skin Exam: Present: normal color, warm/dry Progress - Results and Orders Patient's Lab Results:: I have reviewed the patient's lab results. - Vital Signs Patient's Vital Signs:: I have reviewed the patient's vital signs. Vital Signs: Vital Signs 08/27/20 07:58 Temperature 36.3 C Pulse Rate 98 Respiratory Rate 16 Blood Pressure 145/94 H O2 Sat by Pulse Oximetry 99 - CT/Ultrasound CT/Ultrasound Narrative: I reviewed the official radiology report for CT abd/pelvis - Progress/Reassessment Chief Complaint: Abdominal Pain Progress Note-Subjective: 08/27/20 11:54 IV fludis, IV pain medications, IV ABx given. I disucssed the case with Dr Horvath. Patient will be admitted here initially and trended, given the [facility] pandemic beds are full. She requires admission and will be admitted here and bili trended. She is agreeable. Improved at this time with meds here. Departure Clinical Impression: Pancreatitis, Failure of outpatient treatment, Intractable abdominal pain, Gallbladder sludge, Intractable pain - Departure Disposition: Still a patient Condition: Fair
[2020-08-27 08:36] LABS: Albumin * 4.2 gm/dl (3.4-5.0); BUN/Creatinine Ratio 19.4 (9.0-21.6); Bilirubin, Total 2.8 mg/dL (0.0-1.1); Ca. Corrected For Albumin 9.3 mg/dL (8.4-10.2); Calcium * 9.8 mg/dL (7.9-10.9); Carbon Dioxide 24.1 mmol/L (24-32.6); Potassium 4.1 mmol/L (3.4-4.6); Total Protein 7.4 gm/dL (6.2-8.2)
[2020-08-27 08:57] LABS: Cholesterol 250 mg/dL (0-200); HDL Cholesterol 83 mg/dL (40-60); LDL Cholesterol 153 mg/dL (70-130); Triglycerides 68 mg/dL (30-200); VLDL Cholesterol 14 mg/dL (5-40)
[2020-08-27] MEDS ORDERED: PIPERACILLIN SODIUM/TAZOBACTAM 3.375 GM in DEXTROSE 5 % IN WATER 100 ML IV ONE ×2 (11:29)
[2020-08-27] MEDS: MULTIVIT INFUSN,ADULT 4,VIT K 10 ML, THIAMINE HCL 100 MG in DEXTROSE 5 % IN WATER 1,000 ML IV SCH ×3 (12:30)
[2020-08-27 15:27] LABS: Urine Bilirubin 1 mg/dl (NEGATIVE); Urine Blood Negative /ul (NEGATIVE); Urine Ketone 50 mg/dL (NEGATIVE); Urine Nitrite Negative (NEGATIVE); Urine Protein 15 mg/dL (NEGATIVE); Urine Urobilinogen Normal (NORMAL); Urine pH 6.5 pH (5.0-7.0)
[2020-08-27] MEDS ORDERED: LORazepam 2 MG/ML DISP.SYRIN IV PRN (15:34)
[2020-08-27 15:55] LABS: Urine Appearance Clear (CLEAR); Urine Color Orange
[2020-08-27 15:56] LABS: Urine Bacteria TRACE; Urine RBC None Seen /hpf (0-5); Urine WBC TRACE /hpf (0-5)
--- NOTE | 2020-08-27 16:08 | HP ---
Chief Complaint - Chief Complaint Date of Service: 08/27/20 Time of Service: 12:00 Chief Complaint: Nausea, vomiting, abdominal pain History of Present Illness: Patient presents to the ED for "pancreatitis". She has Hx of pancreatitis. She was eeen here yesterday and Dx with recurrent pancreatitis. There were no beds available due to the Covid pandemic so she was sent home but she states she cannot do it a home. Severe pain despite meds and vomiting. Shaky. She had Sx that started 3 days ago. Severe upper abdominal pain into her back. She drinks alcohol every night, wine but only rarely feels shke if she does not drink. Per my examination in the emergency room she appears to be acutely ill. Her abdominal exam shows the liver to be swollen and tender. Bowel sounds are normal. Heart has a regular rate and rhythm. Lungs are clear all anne. I reviewed the lab work which reflects acute pancreatitis due to alcoholism and with onset of liver failure since yesterday. Medical History (Last Reviewed 08/27/20 @ 09:02 by Carmenza Chang RN) Anxiety Pancreatitis Surgical History: Surgical History (Last Reviewed 08/27/20 @ 09:02 by Carmenza Chang RN) History of myringotomy History of tonsillectomy and adenoidectomy Family History: Family History (Last Reviewed 08/27/20 @ 09:02 by Carmenza Chang RN) Other No pertinent family history Social History: (Last Reviewed 08/27/20 @ 09:02 by Carmenza Chang RN) Social History: Marital status: lives independently: Yes household members: spouse current occupational status: employed Highest education level completed: Associate degree: academi Service: No Tobacco: Smoking Status: Never smoker Alcohol: alcohol intake: current Alcohol type: hard liquor alcohol intake frequency: 3 or more drinks per day Substance Use: substance use type: does not use Dietary Habits: caffeine: Yes Type: carbonated beverages, coffee, tea Review Of Systems (GEN) - Review of Systems Generalized/Overall Review: Present: Weakness, Malaise, Fatigue EENTM: Present: No Symptoms Reported Respiratory: Present: No Symptoms Reported Cardiac: Present: No Symptoms Reported Abdominal: Present: Nausea, Vomiting, Abdominal Pain Genitourinary: Present: No Symptoms Reported Musculoskeletal: Present: No Symptoms Reported Neurological: Present: No Symptoms Reported Skin: Present: No Symptoms Reported Endocrine: Present: No Symptoms Reported Immunizations: IMMUNIZATION HX Immunizations Up to Date Yes History of Influenza Vaccine No Hx Pneumococcal Vaccination No Allergies/Adverse Reactions: Allergies Allergy/AdvReac Type Severity Reaction Status Date / Time No Known Allergies Allergy Verified 08/27/20 08:06 Home Medications: HOME MEDICATIONS Levonorgestrel [Mirena] 1 ea IY ONCE 12/16/19 [Last Taken Unknown] Calcium Carbonate [Tums] 500 mg PO QID PRN #30 tab.chew 12/19/19 [Last Taken Unknown] Metoprolol Succinate [Toprol Xl] 25 mg PO DAILY #30 tablet.sa 12/19/19 [Last Taken Unknown] Ondansetron [Zofran Odt] 4 mg PO Q4H PRN #20 tab 08/26/20 [Last Taken Unknown] oxyCODONE HCL/ACETAMINOPHEN [Percocet 5 MG/325 MG] 1 - 2 tab PO Q4H PRN #30 tab 08/26/20 [Last Taken Unknown] Exam - Exam Vital Signs: Vital Signs - Last Taken Temp 36.3 C 08/27/20 14:01 Pulse 85 08/27/20 14:01 Resp 14 08/27/20 14:01 BP 153/106 H 08/27/20 14:01 Pulse Ox 98 08/27/20 14:01 Constitutional: Present: Alert, Oriented x3, Cooperative, Well developed, Well nourished, Moderate distress, Middle aged ENT Exam: Present: normal ENT inspection, hearing grossly normal, pharynx normal, TMs normal Eye Exam: bilateral eye: normal inspection, PERRL, EOMI Neck: Present: non-tender, full range of motion, supple, normal inspection, trachea midline Back Exam: Present: normal inspection, no CVA tenderness, no vertebral tenderness Breasts: Present: Exam deferred Respiratory: Present: chest non-tender, lungs clear, normal breath sounds, no respiratory distress, no accessory muscle use Cardiovascular/Chest: Present: normal peripheral pulses, regular rate, rhythm, no chest tenderness, no edema, no gallop, no JVD, no murmur, no rub Peripheral Pulses: carotid (R): 2+, carotid (L): 2+, radial (R): 2+, radial (L): 2+ Abdomen: Present: Normal bowel sounds, soft, nontender, nondistended, no rebound tenderness, no hepatospenomegaly, no masses /Rectal: Present: Exam deferred Extremity: Present: normal range of motion, non-tender, normal inspection, no pedal edema, no calf tenderness, normal capillary refill Skin Exam: Present: normal color, warm/dry, no cyanosis Lymphatic: Present: no adenopathy Neurologic: Present: bacteriologist medical II-XII nml as tested, normal cerebellar test, no reggie r/sensory deficits, alert, normal mood/affect, oriented x 3 Appearance: Present: appropriate insight, neat, no memory impairment Eye contact: Present: cooperative, good eye contact, normal speech Thoughts: Present: normal thought pattern, no apparent hallucination Diagnostic Studies: Abnormal Lab Results 08/27/20 08/27/20 08/27/20 Range/Units 07:49 08:18 08:18 WBC 3.7 L D (4.0-10.5) K/mm3 RBC 3.62 L (4.2-5.4) M/mm3 MCV 109.7 H (78-100) fl MCH 37.8 H (27-31) pg Plt Count 131 L (150-450) K/mm3 Immature Gran % (Auto) 0.50 H (0.001-0.429) % Neutrophils % 75.9 H (42-75.0) % Lymphocytes % 13.4 L (20-51) % Monocytes % 9.9 H (0.0-9) % Lymphocytes # 0.50 L (1.5-3.5) k/mm3 Anion Gap 18.0 H (6.8-13.8) mmol/L Random Glucose 131 H (70-110) mg/dL Total Bilirubin 2.8 H (0.0-1.1) mg/dL Direct Bilirubin (0.0-0.3) mg/dL GGT (4-104) U/L AST 219 H (0-48) U/L ALT 159 H (19-67) U/L Cholesterol 250 H (0-200) mg/dL LDL Cholesterol 153 H (70-130) mg/dL HDL Cholesterol 83 H (40-60) mg/dL Cholesterol/HDL Ratio 3.0 L (3.3-4.4) mg/dL Lipase 2781 H (73-393) U/L Urine Protein (NEGATIVE) mg/dL Urine Bilirubin (NEGATIVE) mg/dl Urine WBC (0-5) /hpf Ur Epithelial Cells (0-5) /hpf 08/27/20 08/27/20 08/27/20 Range/Units 08:18 08:18 15:00 WBC (4.0-10.5) K/mm3 RBC (4.2-5.4) M/mm3 MCV (78-100) fl MCH (27-31) pg Plt Count (150-450) K/mm3 Immature Gran % (Auto) (0.001-0.429) % Neutrophils % (42-75.0) % Lymphocytes % (20-51) % Monocytes % (0.0-9) % Lymphocytes # (1.5-3.5) k/mm3 Anion Gap (6.8-13.8) mmol/L Random Glucose (70-110) mg/dL Total Bilirubin (0.0-1.1) mg/dL Direct Bilirubin 1.2 H (0.0-0.3) mg/dL GGT 890 H (4-104) U/L AST (0-48) U/L ALT (19-67) U/L Cholesterol (0-200) mg/dL LDL Cholesterol (70-130) mg/dL HDL Cholesterol (40-60) mg/dL Cholesterol/HDL Ratio (3.3-4.4) mg/dL Lipase (73-393) U/L Urine Protein 15 H (NEGATIVE) mg/dL Urine Bilirubin 1 H (NEGATIVE) mg/dl Urine WBC Trace H (0-5) /hpf Ur Epithelial Cells 5-10 H (0-5) /hpf Laboratory Results WBC 3.7 K/mm3 (4.0-10.5) L D 08/27/20 08:18 RBC 3.62 M/mm3 (4.2-5.4) L 08/27/20 08:18 Hgb 13.7 gm/dL (12.5-16.0) 08/27/20 08:18 Hct 39.7 % (37.0-47.0) 08/27/20 08:18 MCV 109.7 fl (78-100) H 08/27/20 08:18 MCH 37.8 pg (27-31) H 08/27/20 08:18 MCHC 34.5 g/dl (32-36) 08/27/20 08:18 RDW 12.0 % (11.5-14.0) 08/27/20 08:18 Plt Count 131 K/mm3 (150-450) L 08/27/20 08:18 MPV 10.5 fl (8-12.5) 08/27/20 08:18 Immature Gran % (Auto) 0.50 % (0.001-0.429) H 08/27/20 08:18 Immature Gran # (Auto) 0.02 K/mm3 (0.000-0.0310) 08/27/20 08:18 Neutrophils % 75.9 % (42-75.0) H 08/27/20 08:18 Lymphocytes % 13.4 % (20-51) L 08/27/20 08:18 Monocytes % 9.9 % (0.0-9) H 08/27/20 08:18 Eosinophils % 0.0 % (0.0-3.0) 08/27/20 08:18 Basophils % 0.3 % (0.0-1.0) 08/27/20 08:18 Nucleated RBC % 0.0 k/mm3 (0-1) 08/27/20 08:18 Neutrophils # 2.8 K/mm3 (1.3-6.0) 08/27/20 08:18 Lymphocytes # 0.50 k/mm3 (1.5-3.5) L 08/27/20 08:18 Monocytes # 0.4 k/mm3 (0.0-1.0) 08/27/20 08:18 Eosinophils # 0.0 k/mm3 (0.0-0.7) 08/27/20 08:18 Absolute Basophils 0.0 k/mm3 (0.0-0.1) 08/27/20 08:18 Sodium 137 mmol/L (132-142) 08/27/20 08:18 Plasma Sodium 137 mmol/L (130-142) 08/27/20 08:18 Potassium 4.1 mmol/L (3.4-4.6) 08/27/20 08:18 Chloride 99 mmol/L (97-106) 08/27/20 08:18 Carbon Dioxide 24.1 mmol/L (24-32.6) 08/27/20 08:18 Anion Gap 18.0 mmol/L (6.8-13.8) H 08/27/20 08:18 BUN 12 mg/dL (3-23) D 08/27/20 08:18 Creatinine 0.62 mg/dL (0.4-1.4) 08/27/20 08:18 Est GFR (Non-Af Amer) 115 mL/min (60-130) 08/27/20 08:18 BUN/Creatinine Ratio 19.4 (9.0-21.6) 08/27/20 08:18 Random Glucose 131 mg/dL (70-110) H 08/27/20 08:18 Lactic Acid, Venous 1.1 mmol/L (0.4-2.0) 08/27/20 08:18 Calcium 9.8 mg/dL (7.9-10.9) 08/27/20 08:18 Calcium Adj for Albumin 9.3 mg/dL (8.4-10.2) 08/27/20 08:18 Total Bilirubin 2.8 mg/dL (0.0-1.1) H 08/27/20 08:18 Direct Bilirubin 1.2 mg/dL (0.0-0.3) H 08/27/20 08:18 GGT 890 U/L (4-104) H 08/27/20 08:18 AST 219 U/L (0-48) H 08/27/20 08:18 ALT 159 U/L (19-67) H 08/27/20 08:18 Alkaline Phosphatase 78 U/L (50-170) 08/27/20 08:18 Ammonia 19.0 mcmol/L (11-35) 08/27/20 11:55 Lactate Dehydrogenase 175 U/L (81-234) 08/27/20 08:18 Total Protein 7.4 gm/dL (6.2-8.2) 08/27/20 08:18 Albumin 4.2 gm/dl (3.4-5.0) 08/27/20 08:18 Triglycerides 68 mg/dL (30-200) 08/27/20 07:49 Cholesterol 250 mg/dL (0-200) H 08/27/20 07:49 LDL Cholesterol 153 mg/dL (70-130) H 08/27/20 07:49 VLDL Cholesterol 14 mg/dL (5-40) 08/27/20 07:49 HDL Cholesterol 83 mg/dL (40-60) H 08/27/20 07:49 Cholesterol/HDL Ratio 3.0 mg/dL (3.3-4.4) L 08/27/20 07:49 Lipase 2781 U/L (73-393) H 08/27/20 08:18 Serum HCG, Qual Negative (NEGATIVE) 08/27/20 08:18 Urine Color [place] 08/27/20 15:00 Urine Appearance Clear (CLEAR) 08/27/20 15:00 Urine pH 6.5 pH (5.0-7.0) 08/27/20 15:00 Ur Specific [place] 1.010 SP.GR. (1.005-1.010) 08/27/20 15:00 Urine Protein 15 mg/dL (NEGATIVE) H 08/27/20 15:00 Urine Glucose (UA) Negative mg/dL (NEGATIVE) 08/27/20 15:00 Urine Ketones 50 mg/dL (NEGATIVE) 08/27/20 15:00 Urine Blood Negative /ul (NEGATIVE) 08/27/20 15:00 Urine Nitrate Negative (NEGATIVE) 08/27/20 15:00 Urine Bilirubin 1 mg/dl (NEGATIVE) H 08/27/20 15:00 Urine Urobilinogen Normal EU/dl (NORMAL) 08/27/20 15:00 Ur Leukocyte Esterase Negative /ul (NEGATIVE) 08/27/20 15:00 Urine RBC None seen /hpf (0-5) 08/27/20 15:00 Urine WBC Trace /hpf (0-5) H 08/27/20 15:00 Ur Epithelial Cells 5-10 /hpf (0-5) H 08/27/20 15:00 Urine Bacteria Trace (NONE) 08/27/20 15:00 Urine Culture Comments No culture indicated 08/27/20 15:00 Ethyl Alcohol Less than 3.0 mg/dL (0.0-10.0) 08/27/20 07:49 SARS-CoV-2 (PCR) Not detected (NotDetected) 08/27/20 11:55 Assessment/Plan - Narrative Narrative: Keep n.p.o. until lipase is under thousand and the bilirubin is going down Continue IV fluids Monitor heart rate and give IV metoprolol if the rate increases to greater than 100 or blood pressure goes up Daily lab monitoring - Assessment/Plan (1) Acute pancreatitis Problem: Acute (2) Hyperbilirubinemia Problem: Acute (3) Abnormal liver function tests Problem: Acute (4) Chronic alcoholism Problem: Acute (5) Macrocytosis without anemia Problem: Chronic (6) Failure of outpatient treatment Problem: Acute (7) Intractable abdominal pain Problem: Acute
[2020-08-27] MEDS: MORPHINE SULFATE 4 MG/ML SYRG IV PRN ×3 (16:21→23:09)
[2020-08-27] MEDS: DEXTROSE 5%-0.5 NORMAL SALINE 1,000 ML IV PRN (16:43)
[2020-08-27] MEDS: ONDANSETRON 8 MG TAB.RAPDIS PO PRN ×2 (16:48→23:07)
[2020-08-27 17:50] LABS: Folate 6.2 ng/mL (8.6-58.9)
[2020-08-28] MEDS: DEXTROSE 5%-0.5 NORMAL SALINE 1,000 ML IV PRN ×3 (00:09→16:36)
[2020-08-28 06:32] LABS: Hematocrit 37.1 % (37.0-47.0); Hemoglobin 12.6 gm/dL (12.5-16.0); Mean Cell Volume 107.8 fl (78-100); Mean Corpuscular Hemoglobin 36.6 pg (27-31); Mean Platelet Volume 10.4 fl (8-12.5); Neutrophil # 3.1 K/mm3 (1.3-6.0); Neutrophil % 70.9 % (42-75.0); Platelet Count 102 K/mm3 (150-450); Red Blood Count 3.44 M/mm3 (4.2-5.4); Red Cell Distribution Width 11.7 % (11.5-14.0); White Blood Count 4.4 K/mm3 (4.0-10.5)
[2020-08-28] MEDS: MORPHINE SULFATE 4 MG/ML SYRG IV PRN ×4 (06:41→20:28)
[2020-08-28] MEDS: ONDANSETRON 8 MG TAB.RAPDIS PO PRN ×2 (06:42→16:41)
[2020-08-28 06:46] LABS: Albumin * 3.2 gm/dl (3.4-5.0); Anion Gap 9.6 mmol/L (6.8-13.8); BUN/Creatinine Ratio 5.8 (9.0-21.6); Bilirubin, Total 2.4 mg/dL (0.0-1.1); Ca. Corrected For Albumin 8.8 mg/dL (8.4-10.2); Calcium * 8.5 mg/dL (7.9-10.9); Carbon Dioxide 28.4 mmol/L (24-32.6); Total Protein 5.9 gm/dL (6.2-8.2)
[2020-08-28 06:58] LABS: Prothrombin Time (Patient) 13.4 Seconds (9.1-10.7)
[2020-08-28 06:59] LABS: INR 1.37 INR (0.92-1.08)
--- NOTE | 2020-08-28 17:28 | PN ---
Subjective - Date and Time Seen Date: 08/28/20 Time: 09:50 Subjective Narrative: Mary Jane had an uneventful night but she has been nauseous and anorexic. She has vomited today large amount of copious fluid. She is continued to have some abdominal pain in the area of the liver and midepigastrium. She has had a shower this morning and was feeling better but time I rounded. I reviewed her lab work with her except the lipase did not get ordered yesterday for this mor harsh. I have ordered it in we will review that with her later. Her vital signs are stable and she is afebrile. Lab: Her MCV has dropped to 107.8 from 109. Platelets are decreased to 102,000 (down from 131,000). The INR is elevated at 1.37. Potassium has dropped to 3.0 from 4.7. The total bilirubin is 2.4 and is down from 2.8 yesterday. The AST has decreased to 93 and is down from 219. The ALT is 92 and is down from 159. Yesterday his ammonia was normal at 19. The lipase is 1547 and is down from 2781. Had a long discussion with her about her alcoholism and how she needs to get into AA attending 5 or 6 meetings a week. I have reviewed with her how sick her liver is and that it will recover this time but she will reach a time what want. There is also a lot of fatty infiltration of her liver and a lot of liver inflammation. Objective - Review of Systems Generalized/Overall Review: Reports: No Symptoms Reported, Weakness, Malaise EENTM: Reports: No Symptoms Reported Respiratory: Reports: No Symptoms Reported Cardiac: Reports: No Symptoms Reported Abdominal: Reports: Nausea, Vomiting, Abdominal Pain Genitourinary Symptoms: Reports: No Symptoms Reported Musculoskeletal Complaints: Reports: No Symptoms Reported Neurological: Reports: No Symptoms Reported Skin: Reports: No Symptoms Reported Endocrine: Reports: No Symptoms Reported - Vitals Vitals: Last Vital Signs Temp 36.7 C 08/28/20 15:15 Pulse 93 08/28/20 15:15 Resp 16 08/28/20 15:15 BP 128/83 08/28/20 15:15 Pulse Ox 99 08/28/20 15:15 - Abnormal Lab Findings Abnormal Lab Findings: Abnormal Lab Results 08/27/20 08/28/20 08/28/20 Range/Units 08:18 06:25 06:25 RBC 3.44 L (4.2-5.4) M/mm3 MCV 107.8 H (78-100) fl MCH 36.6 H (27-31) pg Plt Count 102 L (150-450) K/mm3 Lymphocytes % 16.8 L (20-51) % Monocytes % 10.1 H (0.0-9) % Lymphocytes # 0.73 L (1.5-3.5) k/mm3 PT 13.4 H (9.1-10.7) Seconds INR (Anticoag Therapy) 1.37 H (0.92-1.08) INR Potassium (3.4-4.6) mmol/L BUN/Creatinine Ratio (9.0-21.6) Random Glucose (70-110) mg/dL Total Bilirubin (0.0-1.1) mg/dL AST (0-48) U/L ALT (19-67) U/L Total Protein (6.2-8.2) gm/dL Albumin (3.4-5.0) gm/dl Lipase (73-393) U/L Folate 6.2 L (8.6-58.9) ng/mL 08/28/20 08/28/20 Range/Units 06:25 06:25 RBC (4.2-5.4) M/mm3 MCV (78-100) fl MCH (27-31) pg Plt Count (150-450) K/mm3 Lymphocytes % (20-51) % Monocytes % (0.0-9) % Lymphocytes # (1.5-3.5) k/mm3 PT (9.1-10.7) Seconds INR (Anticoag Therapy) (0.92-1.08) INR Potassium 3.0 L D (3.4-4.6) mmol/L BUN/Creatinine Ratio 5.8 L (9.0-21.6) Random Glucose 130 H (70-110) mg/dL Total Bilirubin 2.4 H (0.0-1.1) mg/dL AST 93 H (0-48) U/L ALT 92 H (19-67) U/L Total Protein 5.9 L (6.2-8.2) gm/dL Albumin 3.2 L (3.4-5.0) gm/dl Lipase 1547 H (73-393) U/L Folate (8.6-58.9) ng/mL - Exam Constitutional: Present: Alert, Oriented x3, Cooperative, Well developed, Well nourished, No distress ENT Exam: Present: normal ENT inspection, hearing grossly normal, pharynx normal, TMs normal Neck: Present: non-tender, full range of motion, supple, normal inspection, trachea midline Breasts: Present: Exam deferred Respiratory: Present: chest non-tender, lungs clear, normal breath sounds, no respiratory distress, no accessory muscle use, respiratory distress Cardiovascular/Chest: Present: normal peripheral pulses, regular rate, rhythm, no chest tenderness, no edema, no gallop, no JVD, no murmur, no rub Abdomen: Present: Normal bowel sounds, soft, nontender, nondistended, no rebound tenderness, no hepatospenomegaly, no masses /Rectal: Present: Exam deferred Extremity: Present: normal range of motion, non-tender, normal inspection, no pedal edema, no calf tenderness, normal capillary refill Skin Exam: Present: normal color, warm/dry, other - Sallow complexion Lymphatic: Present: no adenopathy Neurologic: Present: colleter II-XII nml as tested, normal cerebellar test, no motor/sensory deficits, alert, normal mood/affect Appearance: Present: appropriate appearance, appropriate insight, neat, no memory impairment Eye contact: Present: cooperative, good eye contact, normal speech Thoughts: Present: normal thought pattern, no apparent hallucination Assessment/Plan Plan Narrative: 1. Recheck morning lab to include CBC, CMP, repeat lipase, GGT 2. Continue n.p.o. status until the lipase is under thousand. 3. No other change in therapy at this time. - Problems/Diagnosis (1) Acute pancreatitis Problem: Acute Qualifiers: Pancreatitis type: alcohol induced Acute pancreatitis complication: uninfected necrosis Qualified Code(s): K85.21 - Alcohol induced acute pancreatitis with uninfected necrosis (2) Hyperbilirubinemia Problem: Acute (3) Abnormal liver function tests Problem: Acute (4) Chronic alcoholism Problem: Chronic (5) Macrocytosis without anemia Problem: Chronic (6) Failure of outpatient treatment Problem: Acute (7) Intractable abdominal pain Problem: Acute
[2020-08-29] MEDS ORDERED: MULTIVIT INFUSN,ADULT 4,VIT K 10 ML, THIAMINE HCL 100 MG in DEXTROSE 5 % IN WATER 1,000 ML IV SCH ×3 (01:00)
[2020-08-29] MEDS: MORPHINE SULFATE 4 MG/ML SYRG IV PRN ×3 (01:10→14:46)
[2020-08-29] MEDS: MULTIVIT INFUSN,ADULT 4,VIT K 10 ML, THIAMINE HCL 100 MG in DEXTROSE 5 % IN WATER 1,000 ML IV SCH ×3 (01:14)
[2020-08-29] MEDS: ONDANSETRON 8 MG TAB.RAPDIS PO PRN ×2 (01:21→07:36)
[2020-08-29 07:07] LABS: Hematocrit 36.2 % (37.0-47.0); Hemoglobin 12.5 gm/dL (12.5-16.0); Mean Cell Volume 108.7 fl (78-100); Mean Corpuscular Hemoglobin 37.5 pg (27-31); Mean Corpuscular Hgb Conc 34.5 g/dl (32-36); Mean Platelet Volume 11.2 fl (8-12.5); Neutrophil # 2.2 K/mm3 (1.3-6.0); Neutrophil % 58.1 % (42-75.0); Platelet Count 103 K/mm3 (150-450); Red Blood Count 3.33 M/mm3 (4.2-5.4); Red Cell Distribution Width 11.5 % (11.5-14.0); White Blood Count 3.7 K/mm3 (4.0-10.5)
[2020-08-29 07:24] LABS: Albumin * 3.5 gm/dl (3.4-5.0); Anion Gap 11.6 mmol/L (6.8-13.8); Bilirubin, Total 2.5 mg/dL (0.0-1.1); Ca. Corrected For Albumin 9.3 mg/dL (8.4-10.2); Calcium * 9.2 mg/dL (7.9-10.9); Carbon Dioxide 30.4 mmol/L (24-32.6); Total Protein 6.5 gm/dL (6.2-8.2)
[2020-08-29 07:30] LABS: BUN/Creatinine Ratio 4.2 (9.0-21.6)
--- NOTE | 2020-08-29 16:48 | DS ---
(1) Acute pancreatitis Problem: Acute Qualifiers: Pancreatitis type: alcohol induced Acute pancreatitis complication: uninfected necrosis Qualified Code(s): K85.21 - Alcohol induced acute pancreatitis with uninfected necrosis (2) Hyperbilirubinemia Problem: Acute (3) Abnormal liver function tests Problem: Acute (4) Chronic alcoholism Problem: Chronic (5) Macrocytosis without anemia Problem: Chronic (6) Failure of outpatient treatment Problem: Acute (7) Intractable abdominal pain Problem: Acute Date of Discharge:: 08/29/20 Hospital Course: Mary Jane had an uneventful night but she has been nauseous and anorexic. She has vomited today large amount of copious fluid. She is continued to have some abdominal pain in the area of the liver and midepigastrium. She has had a shower this morning and was feeling better but time I rounded. I reviewed her lab work with her except the lipase did not get ordered yesterday for this morning. I have ordered it in we will review that with her later. Her vital signs are stable and she is afebrile. Lab: Her MCV has dropped to 107.8 from 109. Platelets are decreased to 102,000 (down from 131,000). The INR is elevated at 1.37. Potassium has dropped to 3.0 from 4.7. The total bilirubin is 2.4 and is down from 2.8 yesterday. The AST has decreased to 93 and is down from 219. The ALT is 92 and is down from 159. Yesterday his ammonia was normal at 19. The lipase is 1547 and is down from 2781. Had a long discussion with her about her alcoholism and how she needs to get into AA attending 5 or 6 meetings a week. I have reviewed with her how sick her liver is and that it will recover this time but she will reach a time what want. There is also a lot of fatty infiltration of her liver and a lot of liver inflammation. Today's vital signs show pulse of 105, respirations 20 and unlabored, blood pressure 128/95, and O2 sat is 100% on room air. Her laboratory work shows potassium still low and unchanged from yesterday at 3.0. Chloride is 95, sodium is 134, EGFR is 98, GGT has dropped to 685 from 890, AST is dropped to 81 from 93, the ALT is dropped to 83 and is down from 92. Her lipase dropped to thousand points to 516. She was given a clear liquid lunch and tolerated it well and a full liquid supper. Since she is tolerated that okay she can be discharged home. She is advised to never drink alcohol again. He is advised to stay away from Tylenol until the liver is completely healed. She will need outpatient lab next . She will see her PCP in 2 weeks. Procedures Performed: none Results and Findings: Lab Pending Results 08/27/20 07:49: Triglycerides 68, Cholesterol 250 H, LDL Cholesterol 153 H, VLDL Cholesterol 14, HDL Cholesterol 83 H, Cholesterol/HDL Ratio 3.0 L, Ethyl Alcohol Less than 3.0 08/27/20 08:18: Sodium 137, Plasma Sodium 137, Potassium 4.1, Chloride 99, Carbon Dioxide 24.1, Anion Gap 18.0 H, BUN 12 D, Creatinine 0.62, Est GFR (Non- Af Amer) 115, BUN/Creatinine Ratio 19.4, Random Glucose 131 H, Calcium 9.8, Calcium Adj for Albumin 9.3, Total Bilirubin 2.8 H, AST 219 H, ALT 159 H, Alkaline Phosphatase 78, Lactate Dehydrogenase 175, Total Protein 7.4, Albumin 4.2, Lipase 2781 H 08/27/20 08:18: WBC 3.7 L D, RBC 3.62 L, Hgb 13.7, Hct 39.7, MCV 109.7 H, MCH 37.8 H, MCHC 34.5, RDW 12.0, Plt Count 131 L, MPV 10.5, Immature Gran % (Auto) 0.50 H, Immature Gran # (Auto) 0.02, Neutrophils % 75.9 H, Lymphocytes % 13.4 L, Monocytes % 9.9 H, Eosinophils % 0.0, Basophils % 0.3, Nucleated RBC % 0.0, Neutrophils # 2.8, Lymphocytes # 0.50 L, Monocytes # 0.4, Eosinophils # 0.0, Absolute Basophils 0.0 08/27/20 08:18: Lactic Acid, Venous 1.1 08/27/20 08:18: Serum HCG, Qual Negative 08/27/20 08:18: GGT 890 H 08/27/20 08:18: Direct Bilirubin 1.2 H 08/27/20 08:18: Vitamin B12 528, Folate 6.2 L 08/27/20 11:55: Ammonia 19.0 08/27/20 11:55: SARS-CoV-2 (PCR) Not detected 08/27/20 15:00: Urine Color [place], Urine Appearance Clear, Urine pH 6.5, Ur Specific [place] 1.010, Urine Protein 15 H, Urine Glucose (UA) Negative, Urine Ketones 50, Urine Blood Negative, Urine Nitrate Negative, Urine Bilirubin 1 H, Urine Ictotest Positive H, Prot Sulfosalicylic Acd Negative, Urine Urobilinogen Normal, Ur Leukocyte Esterase Negative, Urine RBC None seen, Urine WBC Trace H, Ur Epithelial Cells 5-10 H, Urine Bacteria Trace, Urine Culture Comments No culture indicated 08/28/20 06:25: WBC 4.4, RBC 3.44 L, Hgb 12.6, Hct 37.1, MCV 107.8 H, MCH 36.6 H, MCHC 34.0, RDW 11.7, Plt Count 102 L, MPV 10.4, Immature Gran % (Auto) 0.20, Immature Gran # (Auto) 0.01, Neutrophils % 70.9, Lymphocytes % 16.8 L, Monocytes % 10.1 H, Eosinophils % 1.8, Basophils % 0.2, Nucleated RBC % 0.0, Neutrophils # 3.1, Lymphocytes # 0.73 L, Monocytes # 0.4, Eosinophils # 0.1, Absolute Basophils 0.0 08/28/20 06:25: PT 13.4 H, INR (Anticoag Therapy) 1.37 H 08/28/20 06:25: Sodium 133, Plasma Sodium 133, Potassium 3.0 L D, Chloride 98, Carbon Dioxide 28.4, Anion Gap 9.6, BUN 4 D, Creatinine 0.69, Est GFR (Non-Af Amer) 102, BUN/Creatinine Ratio 5.8 L, Random Glucose 130 H, Calcium 8.5, Calcium Adj for Albumin 8.8, Total Bilirubin 2.4 H, AST 93 H, ALT 92 H, Alkaline Phosphatase 61, Total Protein 5.9 L, Albumin 3.2 L 08/28/20 06:25: Lipase 1547 H 08/29/20 06:45: WBC 3.7 L, RBC 3.33 L, Hgb 12.5, Hct 36.2 L, MCV 108.7 H, MCH 37.5 H, MCHC 34.5, RDW 11.5, Plt Count 103 L, MPV 11.2, Immature Gran % (Auto) 0.80 H, Immature Gran # (Auto) 0.03, Neutrophils % 58.1, Lymphocytes % 28.6, Monocytes % 9.6 H, Eosinophils % 2.1, Basophils % 0.8, Nucleated RBC % 0.0, Neutrophils # 2.2, Lymphocytes # 1.07 L, Monocytes # 0.4, Eosinophils # 0.1, Absolute Basophils 0.0 08/29/20 06:45: Sodium 134, Plasma Sodium 134, Potassium 3.0 L, Chloride 95 L, Carbon Dioxide 30.4, Anion Gap 11.6, BUN 3, Creatinine 0.71, Est GFR (Non-Af Amer) 98, BUN/Creatinine Ratio 4.2 L, Random Glucose 98, Calcium 9.2, Calcium Adj for Albumin 9.3, Total Bilirubin 2.5 H, GGT 685 H, AST 81 H, ALT 83 H, Alkaline Phosphatase 68, Total Protein 6.5, Albumin 3.5, Lipase 516 H Discharge Location: Home Disposition: Home self-care Condition: Fair Face to Face Encounter completed per [facility] Guidelines: No Discharge Activity: Activity as tolerated Discharge Diet: General/regular food - Starting tomorrow. Additional Patient Instructions (free text): 1. See PCP in about 1 week. 2. No alcohol ever again 3. CMP and lipase in 4 days on 4. Off work until September 06. Note provided. Complete Home Medications List: Complete Home Medication List: Levonorgestrel [Mirena] 1 ea IY ONCE 12/16/19 Calcium Carbonate [Tums] 500 mg PO QID PRN #30 tab.chew 12/19/19 Metoprolol Succinate [Toprol Xl] 25 mg PO DAILY #30 tablet.sa 12/19/19 Ondansetron [Zofran Odt] 4 mg PO Q4H PRN #20 tab 08/26/20 oxyCODONE HCL/ACETAMINOPHEN [Percocet 5 MG/325 MG] 1 - 2 tab PO Q4H PRN #30 tab 08/26/20 Folic Acid 1 mg PO DAILY #30 tab 08/29/20 Ondansetron [Zofran Odt] 8 mg PO Q6H PRN #14 tab.rapdis 08/29/20 Potassium Chloride [Klor-Con 10] 10 meq PO DAILY #30 tablet.sa 08/29/20 Thiamine HCl 500 mg PO DAILY #30 tab 08/29/20
[2020-08-29 18:35] VITALS: BP 137/92
[2020-08-30] MEDS ORDERED: POTASSIUM CHLORIDE 10 MEQ TABLET.SA PO SCH (09:00)
== END 2020-08-29 19:34 | disposition home or self-care (01) | DRG 440 ==
LOC: ER 07:53 → MS 07:53
PROVIDERS: ADMIT Family Medicine; ATTEND Family Medicine
DX: K72.90 Hepatic failure, unspecified without coma; K85.20 Alcohol induced acute pancreatitis without necrosis or infection; E80.6 Other disorders of bilirubin metabolism; F10.20 Alcohol dependence, uncomplicated; D75.89 Other specified diseases of blood and blood-forming organs